=== PATIENT | male | born 1970 | race Caucasian/White ===

== ENCOUNTER 2017-04-24 08:58 | Emergency (ER) | payer MEDICAID ==
[~2017-04-24] VITALS: Ht 172.7 cm; Wt 79.8 kg
[2017-04-24] MEDS ORDERED: TRAZODONE HCL150 MG ORAL (09:09)
[2017-04-24] MEDS ORDERED: ABILIFY20 MG ORAL (09:09)
[2017-04-24] MEDS ORDERED: WELLBUTRIN SR100 MG ORAL (09:09)
[2017-04-24 09:23] VITALS: BP 118/80
[2017-04-24] MEDS ORDERED: CLOTRIMAZOLE15 GM TOPIC (09:30)
[2017-04-24] MEDS ORDERED: ZINC OXIDE30 GM TOPIC (09:30)
[2017-04-24 09:34] VITALS: BP 118/80
--- NOTE | 2017-04-24 11:44 | Emergency Room Report ---
History of Present Illness General Chief Complaint: Skin Rash/Abscess Source: Patient Present Illness HPI 47-year-old male presents ED complaining of rash times one week. Patient notes "jock itch" in his inguinal area times one week. Patient also notes a rash to his buttock area for the same period of time. States it is itchy. Denies any pain. Denies any urethral discharge. Denies any recent unprotected sexual intercourse. No other aggravating relieving factors. Denies any other associated symptoms Allergies: Uncoded Allergies: PENICILLIN (Allergy, Unknown, 04/24/17) Patient History Past Medical History: psych hx Past Surgical History: none Pertinent Family History: none Social History: Denies: alcohol use, drug use, smoking Immunizations: UTD Reviewed Nursing Documentation: PMH: Agreed, PSxH: Agreed Nursing Documentation-PMH History Of Psychiatric Problem: Yes - Bipolar, ADHD; Depression Review of Systems All Other Systems: negative except mentioned in HPI Physical Exam Vital Signs Date Time Temp Pulse Resp B/P Pulse Ox O2 Delivery O2 Flow Rate FiO2 04/24/17 09:04 97.7 84 16 118/80 98 Room Air Sp02 EP Interpretation: reviewed, normal General Appearance: no apparent distress, alert, GCS 15, non-toxic Head: normocephalic Eyes: bilateral eye PERRL, bilateral eye normal inspection ENT: normal ENT inspection Neck: normal inspection Respiratory: normal inspection Cardiovascular #1: normal inspection Gastrointestinal: normal inspection Rectal: deferred Genitourinary: no CVA tenderness Musculoskeletal: normal inspection Neurologic: alert, oriented x3, responsive, motor strength/tone normal, sensory intact, speech normal Psychiatric: normal inspection Skin: rash - erythematous satellite type rash to bilateral inguinal area. ezcematous dry rash noted to medial buttock area Lymphatic: normal inspection Medical Decision Making Diagnostic Impression: Primary Impression: Candidiasis Additional Impression: Dermatitis ER Course Hospital Course 47-year-old male presents to ED with rash to groin, buttock Differential diagnoses include: Cellulitis, dermatitis, insect bite, abscess Clinical course Patient placed on stretcher. After initial history, physical exam reveals a male in no acute distress. On exam there are multiple macular circular -like lesions noted to the bilateral inguinal area. Consistent with candidiasis. There is an eczematous rash in the buttocks region similar to a diaper rash. Diagnosis - candidiasis, dermatitis stable and discharged to home with prescription for clotrimazole for the inguinal region, zinc oxide for the buttock area. Instructed to followup with PMD. Instructed return to ED if symptoms recur or worsen Last Vital Signs Date Time Temp Pulse Resp B/P Pulse Ox O2 Delivery O2 Flow Rate FiO2 04/24/17 09:34 97.7 16 118/80 98 Room Air 04/24/17 09:04 84 Status: improved Disposition: HOME, SELF-CARE Condition: Stable Scripts Zinc Oxide* (ZINC OXIDE*) 30 Gm Oint...g. 1 APPLIC TOPIC FOUR TIMES A DAY, #30 GM Prov: CHELSEY BYRD M.D. 04/24/17 Clotrimazole* (LOTRIMIN*) 15 Gm Cream..g. 1 APPLIC TOPIC TWICE A DAY, #15 GM Prov: CHELSEY BYRD M.D. 04/24/17 Referrals: [facility],REFERRING (PCP) Patient Instructions: Pruritus CHELSEY BYRD M.D. Apr 24, 2017 11:43
== END 2017-04-24 09:34 | disposition home or self-care (01) ==
LOC: EMR 09:25
DX: B37.89 Other sites of candidiasis (principal); L30.9 Dermatitis, unspecified; F31.9 Bipolar disorder, unspecified; F90.9 Attention-deficit hyperactivity disorder, unspecified type; Z88.0 Allergy status to penicillin
CPT/HCPCS: 99284

== ENCOUNTER 2017-06-16 08:33 | Emergency (ER) | payer MEDICAID ==
[~2017-06-16] VITALS: Ht 172.7 cm; Wt 79.4 kg
[~2017-06-16 08:33] MED LIST: ABILIFY20 MG ORAL; CLOTRIMAZOLE15 GM TOPIC; TRAZODONE HCL150 MG ORAL; WELLBUTRIN SR100 MG ORAL; ZINC OXIDE30 GM TOPIC
[2017-06-16 08:47] VITALS: BP 108/69
[2017-06-16] MEDS ORDERED: NORCO 5-325 TA1 EACH ORAL (08:53)
[2017-06-16] MEDS ORDERED: IBUPROFEN600 MG ORAL (08:53)
[2017-06-16 09:00] VITALS: BP 108/69
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
== END 2017-06-16 09:03 | disposition home or self-care (01) ==
LOC: EMR 08:51
DX: S02.2XXA Fracture of nasal bones, initial encounter for closed fracture (principal); W50.1XXA Accidental kick by another person, initial encounter; Y93.9 Activity, unspecified; Y99.9 Unspecified external cause status; J34.89 Other specified disorders of nose and nasal sinuses; Z86.79 Personal history of other diseases of the circulatory system
CPT/HCPCS: 99283

== ENCOUNTER 2017-07-06 19:17 | Emergency (ER) | payer MEDICAID ==
[~2017-07-06] VITALS: Ht 172.7 cm; Wt 78.9 kg
[~2017-07-06 19:17] MED LIST changes: +IBUPROFEN600 MG ORAL; +NORCO 5-325 TA1 EACH ORAL
[2017-07-06] MEDS ORDERED: HYDROCORTISONE30 G2 TP (19:57)
[2017-07-06] MEDS ORDERED: BENADRYL ALLERG25 M1 PO (19:57)
[2017-07-06] MEDS ORDERED: BACITRACIN-P28.35 GM TP (19:57)
[2017-07-06 20:00] VITALS: BP 129/82
--- NOTE | 2017-07-06 20:00 | Emergency Room Report ---
History of Present Illness General Chief Complaint: Skin Rash/Abscess Present Illness HPI 47-year-old male presents to the emergency department complaining of itchy rash to the left forearm times two hours Patient states he was doing some housecleaning in a friend's house when he began feeling itchy and scratching to his left forearm. Patient denies increased temperature palpation denies fevers denies chills. Denies lesions/rashes elsewhere on the body. Denies new medications or body washes or creams. Denies swelling of the lips, tongue , throat or airway. Denies wheezing, or shortness of breath. Denies recent travel , recent illness or ill contacts. denies blisters, oral lesions, or sloughing of the skin. Denies CP, Palpitations, LOC, AMS, dizziness, Changes in Vision, Sensation, paresthesias, or a sudden severe headache. Allergies: Uncoded Allergies: PENICILLIN (Allergy, Intermediate, Rash, 06/16/17) Patient History Past Medical History: see triage record Past Surgical History: none Pertinent Family History: none Immunizations: UTD Reviewed Nursing Documentation: PMH: Agreed, PSxH: Agreed Nursing Documentation-PMH Hx Cardiac Problems: No - hiv hep c bi-polar depression schizophrenia Review of Systems All Other Systems: negative except mentioned in HPI Physical Exam Vital Signs Date Time Temp Pulse Resp B/P (MAP) Pulse Ox O2 Delivery O2 Flow Rate FiO2 07/06/17 19:51 98.1 115 16 129/82 97 Room Air Sp02 EP Interpretation: reviewed, normal General Appearance: no apparent distress, alert, GCS 15, non-toxic Head: normocephalic, atraumatic Eyes: bilateral eye normal inspection, bilateral eye PERRL ENT: hearing grossly normal, normal pharynx, no angioedema, normal voice, other - no swelling of the lips or tongue Neck: full range of motion, supple/symm/no masses Respiratory: lungs clear, normal breath sounds, no respiratory distress, no wheezing, speaking full sentences Cardiovascular #1: regular rate, rhythm, normal capillary refill Musculoskeletal: back normal, gait/station normal, normal range of motion, non- tender Neurologic: alert, oriented x3, responsive, motor strength/tone normal, sensory intact, speech normal Skin: normal color, warm/dry, well hydrated, rash - area of induration and blanching erythema with excoriations to the left wrist, no increased temperature to palpation, no blisters, no vessicles , dc, or crusting. Lymphatic: no adenopathy Medical Decision Making PA Attestation Dr. garcia is my supervising Physician whom patient management has been discussed with. Diagnostic Impression: Primary Impression: Insect bite Qualified Codes: W57.XXXA - Bitten or stung by nonvenomous insect and other nonvenomous arthropods, initial encounter Additional Impression: Rash and nonspecific skin eruption ER Course 47-year-old male presents to the emergency department complaining of itchy rash to the left forearm times two hours Patient states he was doing some housecleaning in a friend's house when he began feeling itchy and scratching to his left forearm. Patient denies increased temperature palpation denies fevers denies chills. Denies lesions/rashes elsewhere on the body. Denies new medications or body washes or creams. Denies swelling of the lips, tongue , throat or airway. Denies wheezing, or shortness of breath. Denies recent travel , recent illness or ill contacts. denies blisters, oral lesions, or sloughing of the skin. Denies CP, Palpitations, LOC, AMS, dizziness, Changes in Vision, Sensation, paresthesias, or a sudden severe headache. Ddx considered but are not limited to cellulitis, scabies, shingles, varicella, dermatitis, urticaria, eczema, tinea, viral exanthem, SJS Vital signs: are WNL, pt. is afebrile H&PE are most consistent with insect bites with localized reaction. ORDERS: none required at this time, the diagnosis is clinical ED INTERVENTIONS: None required at this time. DISCHARGE: At this time pt. is stable for d/c to home. Will provide printed patient care instructions, and any necessary prescriptions. Care plan and follow up instructions have been discussed with the patient prior to discharge. Last Vital Signs Date Time Temp Pulse Resp B/P (MAP) Pulse Ox O2 Delivery O2 Flow Rate FiO2 07/06/17 19:51 98.1 115 16 129/82 97 Room Air Disposition: HOME, SELF-CARE Condition: Stable Scripts Bacitracin/Polymyxin B Sulfate (BACITRACIN-POLYMYXIN OINTMENT) 28.35 Gm Oint...g. 1 APPLIC TP BID, #28.3 GM Prov: Darby Humphrey 07/06/17 Hydrocortisone (Hydrocortisone Cream 2.5%) Y Cream.appl 1 APPLIC TP BID, #28.3 GM Prov: Darby Humphrey 07/06/17 Diphenhydramine Hcl (BENADRYL ALLERGY) 25 Mg Tablet 25 MG PO Q6HR, #20 TAB Prov: Darby Humphrey 07/06/17 Patient Instructions: Insect Bite, Rxqy-uz-Lxrq, Rash, Xibu-ni-Pqop Additional Instructions: Take medications as directed. Follow up with a Primary Care Provider in 3-5 days, even if your symptoms have resolved. --Please review list of primary care clinics, if you do not already have a primary care provider Return sooner to ED if new symptoms occur, or current symptoms become worse. Do not drink alcohol, drive, or operate heavy machinery while taking Benadryl as this may cause drowsiness. - Please note that this Emergency Department Report was dictated using [employer] port director technology software, occasionally this can lead to erroneous entry secondary to interpretation by the dictation equipment. Darby Humphrey Jul 06, 2017 20:00
== END 2017-07-06 20:00 | disposition home or self-care (01) ==
LOC: EMR 19:57
DX: R21 Rash and other nonspecific skin eruption (principal); W57.XXXA Bitten or stung by nonvenomous insect and other nonvenomous arthropods, initial encounter; Y93.E9 Activity, other interior property and clothing maintenance; Y99.9 Unspecified external cause status; Z88.0 Allergy status to penicillin
CPT/HCPCS: 99284

== ENCOUNTER 2017-07-09 11:29 | Emergency (ER) | payer MEDICAID ==
[~2017-07-09] VITALS: Ht 172.7 cm; Wt 79.4 kg
[~2017-07-09 11:29] MED LIST changes: +BACITRACIN-P28.35 GM TP; +BENADRYL ALLERG25 M1 PO; +HYDROCORTISONE30 G2 TP
[2017-07-09 11:40] VITALS: BP 133/76
[2017-07-09] MEDS ORDERED: Ketorolac 60mg Inj IM ONE (12:15)
[2017-07-09 12:30] VITALS: BP 133/76
--- NOTE | 2017-07-09 15:28 | Emergency Room Report ---
History of Present Illness General Chief Complaint: Pain Source: Patient Present Illness HPI This is a 47-year-old male presented after increased left-sided headache. Patient had gradual onset of symptoms. Patient reported having headache for approximately one week. He denies any recent trauma. He reported having increased pain to the left side of his head behind his ear. He denied any fever or or hearing changes. The patient presented prior history of HIV. He states that he has been taking medications. Also takes medications for psychiatric problems. The patient denied any vomiting or visual changes. Allergies: Uncoded Allergies: PENICILLIN (Allergy, Intermediate, Rash, 06/16/17) Patient History Past Medical History: see triage record Reviewed Nursing Documentation: PMH: Agreed, PSxH: Agreed Nursing Documentation-PMH Hx Cardiac Problems: No - hiv, hep c History Of Psychiatric Problem: Yes - ADHD, DEPRESSION, AUDITORY VOICES, BIPOLAR, SCHIZOPHRENIA Review of Systems All Other Systems: negative except mentioned in HPI Physical Exam Vital Signs Date Time Temp Pulse Resp B/P (MAP) Pulse Ox O2 Delivery O2 Flow Rate FiO2 07/09/17 11:40 98.1 97 19 133/76 99 Room Air General Appearance: well appearing, no apparent distress, alert, non-toxic Head: normocephalic, atraumatic, other - tenderness to left ear ENT: hearing grossly normal, normal voice Neck: full range of motion, supple Respiratory: no respiratory distress, speaking full sentences Musculoskeletal: no calf tenderness Neurologic: normal gait Psychiatric: mood/affect normal Skin: no rash Medical Decision Making Diagnostic Impression: Primary Impression: Headache ER Course Presented for headache. Differential diagnoses included but was not limited to skull fracture, subarachnoid hemorrhage, meningitis, aneurysm, mass lesion, intracranial hemorrhage. I given the patient's history of HIV, CT imaging of the head was ordered. the patient eloped prior to getting head CT without notifying staff. The patient did not appear to have any alteration of his mental status. Last Vital Signs Date Time Temp Pulse Resp B/P (MAP) Pulse Ox O2 Delivery O2 Flow Rate FiO2 07/09/17 12:30 98.1 97 19 133/76 99 Room Air Status: unchanged Disposition: ELOPED Condition: Unknown Referrals: [facility],REFERRING (PCP) Chad Etienne Jul 09, 2017 15:28
== END 2017-07-09 14:21 | disposition home or self-care (01) ==
LOC: EMR 11:54
DX: R51 Headache (principal); Z88.0 Allergy status to penicillin
CPT/HCPCS: 99281

== ENCOUNTER 2018-04-16 20:38 | Emergency (ER) | payer MEDICAID ==
[~2018-04-16] VITALS: Ht 172.7 cm; Wt 77.1 kg
[2018-04-16 21:13] VITALS: BP 113/68
[2018-04-16 21:23] LABS: APPEARANCE,URINE CLEAR; BASOPHILS % (AUTO) 0.7 % (0.0-2.0); BILIRUBIN, URINE NEGATIVE (NEGATIVE); EOSINOPHILS % (AUTO) 1.4 % (0.0-3.0); GLUCOSE, URINE (UA) NEGATIVE (NEGATIVE); HEMATOCRIT 37.2 % (42.0-52.0); HEMOGLOBIN 12.9 G/DL (14.2-18.0); KETONES,URINE 1+ (NEGATIVE); LEUKOCYTE ESTERASE ,URINE 1+ (NEGATIVE); LYMPHOCYTES % (AUTO) 22.8 % (20.0-45.0); MEAN CORPUSCULAR VOLUME 97 FL (80-99); MONOCYTES % (AUTO) 9.7 % (1.0-10.0); NEUTROPHILS % (AUTO) 65.5 % (45.0-75.0); NITRITE,URINE NEGATIVE (NEGATIVE); PH,URINE 6 (4.5-8.0); PLATELET COUNT 179 K/UL (150-450); PROTEIN,URINE 2+ (NEGATIVE); RED BLOOD COUNT 3.83 M/UL (4.70-6.10); RED CELL DISTRIBUTION WIDTH 12.2 % (11.6-14.8); UROBILINOGEN,URINE 1 MG/DL (0.0-1.0); WHITE BLOOD COUNT 11.8 K/UL (4.8-10.8)
[2018-04-16 21:24] LABS: COLOR,URINE YELLOW
[2018-04-16] MEDS ORDERED: Morphine Sulfate 4mg/ml Inj IVP ONE (21:30)
[2018-04-16 21:33] LABS: ANION GAP 8 mmol/L (5-15); BLOOD UREA NITROGEN 16 mg/dL (7-18); CALCIUM 8.9 MG/DL (8.5-10.1); CARBON DIOXIDE 28 MMOL/L (21-32); CHLORIDE 105 MMOL/L (98-107); POTASSIUM 3.5 MMOL/L (3.5-5.1); SODIUM 140 MMOL/L (136-145)
[2018-04-16 21:37] LABS: ALANINE AMINOTRANSFERASE 101 U/L (12-78); ALBUMIN 3.3 G/DL (3.4-5.0); ALBUMIN/GLOBULIN RATIO 0.8 (1.0-2.7); ALKALINE PHOSPHATASE 159 U/L (46-116); ASPARTATE AMINO TRANSFERASE 60 U/L (15-37); BILIRUBIN,TOTAL 0.2 MG/DL (0.2-1.0)
--- NOTE | 2018-04-16 21:57 | Emergency Room Report ---
History of Present Illness General Chief Complaint: Abdominal Pain Source: Patient Present Illness [facility] ED complaining of abdominal pain 1 day. Pain is epigastric, burning, 8 out of 10, nonradiating. Denies nausea or vomiting. Denies fevers or chills. Denies chest pain or shortness of breath. No other aggravating relieving factors. Denies any other associated symptoms Allergies: Coded Allergies: PENICILLINS (Unverified Allergy, Unknown, Rash, 04/16/18) Uncoded Allergies: PENICILLIN (Allergy, Intermediate, Rash, 06/16/17) Patient History Past Medical History: psych hx Past Surgical History: none Pertinent Family History: none Social History: Denies: smoking, alcohol use, drug use Immunizations: UTD Reviewed Nursing Documentation: PMH: Agreed; PSxH: Agreed Nursing Documentation-PMH Past Medical History: No History, Except For Hx Cardiac Problems: No - hiv, hep c History Of Psychiatric Problem: Yes Review of Systems All Other Systems: negative except mentioned in HPI Physical Exam Vital Signs Date Time Temp Pulse Resp B/P (MAP) Pulse Ox O2 Delivery O2 Flow Rate FiO2 04/16/18 20:42 97.9 95 16 113/68 98 Room Air 97.9 Sp02 EP Interpretation: reviewed, normal General Appearance: no apparent distress, alert, GCS 15, non-toxic Head: normocephalic, atraumatic Eyes: bilateral eye normal inspection, bilateral eye PERRL ENT: hearing grossly normal, normal pharynx, no angioedema, normal voice Neck: full range of motion, supple/symm/no masses Respiratory: chest non-tender, lungs clear, normal breath sounds, speaking full sentences Cardiovascular #1: regular rate, rhythm, no edema Cardiovascular #2: 2+ carotid (R), 2+ carotid (L), 2+ radial (R), 2+ radial (L) , 2+ dorsalis pedis (R), 2+ dorsalis pedis (L) Gastrointestinal: normal bowel sounds, soft, non-distended, no guarding, no rebound, tenderness - epigastric Rectal: deferred Genitourinary: normal inspection, no CVA tenderness Musculoskeletal: back normal, gait/station normal, normal range of motion, non- tender Neurologic: alert, oriented x3, responsive, motor strength/tone normal, sensory intact, speech normal Psychiatric: judgement/insight normal, memory normal, mood/affect normal, no suicidal/homicidal ideation Reflexes: 3+ bicep (R), 3+ bicep (L), 3+ tricep (R), 3+ tricep (L), 3+ knee (R) , 3+ knee (L) Skin: normal color, no rash, warm/dry, well hydrated Lymphatic: no adenopathy Medical Decision Making Diagnostic Impression: Primary Impression: Cholelithiasis Qualified Codes: K80.20 - Calculus of gallbladder without cholecystitis without obstruction ER Course Hospital Course 48-year-old M presents to ED with epigastric/RUQ pain Differential diagnosis includes-appendicitis, cholecystitis, small bowel obstruction, gastritis, Clinical course Patient placed on stretcher. After initial history and physical I ordered labs , IV fluids, pain medications and US Labs - no leukocytosis, electrolytes ok, LFTs mildly elevated ABD US - cholelithiasis, no cholecystitis Discussed findings with patient. Patient does not appear toxic. No signs of biliary obstruction. Recommend close follow-up with PMD. I'll provide him with surgical referral I feel this is a highly complex case requiring extensive working including EKG/ Rhythm strip, Xray/CT/US, Blood/urine lab work, repeat exams while in ED, and administration of strong opiates/narcotics for pain control, admission to hospital or close patient follow up. Diagnosis - cholelithiasis Stable and discharged to home with Rx [place], Zantac. Followup with PMD/ surgery. Return to ED if symptoms recur or worsen Labs Test 04/16/18 19:07 White Blood Count 11.8 K/UL (4.8-10.8) Red Blood Count 3.83 M/UL (4.70-6.10) Hemoglobin 12.9 G/DL (14.2-18.0) Hematocrit 37.2 % (42.0-52.0) Mean Corpuscular Volume 97 FL (80-99) Mean Corpuscular Hemoglobin 33.7 PG (27.0-31.0) Mean Corpuscular Hemoglobin Concent 34.6 G/DL (32.0-36.0) Red Cell Distribution Width 12.2 % (11.6-14.8) Platelet Count 179 K/UL (150-450) Mean Platelet Volume 6.0 FL (6.5-10.1) Neutrophils (%) (Auto) 65.5 % (45.0-75.0) Lymphocytes (%) (Auto) 22.8 % (20.0-45.0) Monocytes (%) (Auto) 9.7 % (1.0-10.0) Eosinophils (%) (Auto) 1.4 % (0.0-3.0) Basophils (%) (Auto) 0.7 % (0.0-2.0) Urine Color Yellow Urine Appearance Clear Urine pH 6 (4.5-8.0) Urine Specific [place] 1.025 (1.005-1.035) Urine Protein 2+ (NEGATIVE) Urine Glucose (UA) Negative (NEGATIVE) Urine Ketones 1+ (NEGATIVE) Urine Occult Blood Negative (NEGATIVE) Urine Nitrite Negative (NEGATIVE) Urine Bilirubin Negative (NEGATIVE) Urine Urobilinogen 1 MG/DL (0.0-1.0) Urine Leukocyte Esterase 1+ (NEGATIVE) Urine RBC 0-2 /HPF (0 - 0) Urine WBC 0-2 /HPF (0 - 0) Urine Squamous Epithelial Cells None /LPF (NONE/OCC) Urine Bacteria Few /HPF (NONE) Urine Mucus Moderate /LPF (NONE/OCC) Sodium Level 140 MMOL/L (136-145) Potassium Level 3.5 MMOL/L (3.5-5.1) Chloride Level 105 MMOL/L (98-107) Carbon Dioxide Level 28 MMOL/L (21-32) Anion Gap 8 mmol/L (5-15) Blood Urea Nitrogen 16 mg/dL (7-18) Creatinine 1.0 MG/DL (0.55-1.30) Estimat Glomerular Filtration Rate > 60 mL/min (>60) Glucose Level 110 MG/DL (74-106) Calcium Level 8.9 MG/DL (8.5-10.1) Total Bilirubin 0.2 MG/DL (0.2-1.0) Aspartate Amino Transf (AST/SGOT) 60 U/L (15-37) Alanine Aminotransferase (ALT/SGPT) 101 U/L (12-78) Alkaline Phosphatase 159 U/L (46-116) Total Protein 7.2 G/DL (6.4-8.2) Albumin 3.3 G/DL (3.4-5.0) Globulin 3.9 g/dL Albumin/Globulin Ratio 0.8 (1.0-2.7) Lipase 234 U/L (73-393) CT/MRI/US Diagnostic Results CT/MRI/US Diagnostic Results : Imaging Test Ordered: US Impression choleltihasis. no cholecystitis. no pericholecystic fluid. no GB wall thickening Last Vital Signs Date Time Temp Pulse Resp B/P (MAP) Pulse Ox O2 Delivery O2 Flow Rate FiO2 04/16/18 21:29 97.9 04/16/18 21:13 16 113/68 98 Room Air 04/16/18 20:42 95 Status: improved Disposition: HOME, SELF-CARE Condition: Stable Scripts Ranitidine Hcl* (ZANTAC*) 150 Mg Tablet 150 MG ORAL TWICE A DAY, #30 TAB Prov: Jesús Aguilar MD 04/16/18 Hydrocodone Bit/Acetaminophen 5-325* (NORCO 5-325*) 1 Each Tablet 1 TAB ORAL Q6H PRN for For Pain, #10 TAB 0 Refills Prov: Jesús Aguilar MD 04/16/18 Referrals: [facility],REFERRING (PCP) Jesús Aguilar MD Apr 16, 2018 21:57
[2018-04-16] MEDS ORDERED: RANITIDINE HCL150 MG ORAL (22:36)
[2018-04-16] MEDS ORDERED: NORCO 5-325 TA1 EACH ORAL (22:36)
[2018-04-16 22:56] VITALS: BP 113/68
--- NOTE | 2018-04-17 14:08 | Diagnostic Imaging Report ---
Indication:Abdominal pain. Hepatitis C Technique: Grayscale and duplex Doppler imaging of the abdomen performed. Comparison: None Findings: The liver, demonstrated part of the pancreas, gallbladder, aorta and IVC, both kidneys, appear unremarkable. Borderline splenomegaly measuring 13 cm. There is no biliary ductal dilatation identified. Doppler evaluation of the main portal vein shows patency. There is no ascites. No hydronephrosis seen. CBD is 6 mm. Impression: No acute findings. Borderline splenomegaly
== END 2018-04-16 22:57 | disposition home or self-care (01) ==
LOC: EMR 20:52
DX: K80.20 Calculus of gallbladder without cholecystitis without obstruction (principal); Z88.0 Allergy status to penicillin
CPT/HCPCS: 36415; 76700; 80053; 81003; 83690; 85025; 96361; 96374; 99284; J2270; 96360

== ENCOUNTER 2018-06-27 19:26 | Emergency (ER) | payer MEDICAID ==
[~2018-06-27] VITALS: Ht 172.7 cm; Wt 72.6 kg
[~2018-06-27 19:26] MED LIST changes: +RANITIDINE HCL150 MG ORAL
[2018-06-27] MEDS ORDERED: ACYCLOVIR800 MG ORAL (20:14)
[2018-06-27] MEDS ORDERED: LEVAQUIN750 MG ORAL (20:14)
[2018-06-27] MEDS ORDERED: VALACYCLOVIR500 MG ORAL (20:14)
[2018-06-27] MEDS ORDERED: GABAPENTIN100 MG ORAL (20:14)
[2018-06-27] MEDS ORDERED: NAPROXEN500 M2 ORAL (20:14)
[2018-06-27] MEDS ORDERED: AZITHROMYCIN500 MG ORAL (20:14)
[2018-06-27 20:30] VITALS: BP 125/77
[2018-06-27] MEDS ORDERED: Morphine Sulfate 4mg/ml Inj (IV USE ONLY) IVP ONE (20:30)
[2018-06-27] MEDS ORDERED: Acyclovir 500 MG in D5W 110 ML IV ONE (20:30)
[2018-06-27 20:35] VITALS: BP 125/77
--- NOTE | 2018-06-27 22:01 | Emergency Room Report ---
History of Present Illness General Chief Complaint: General Complaint Source: Patient Present Illness HPI This patient has a history of HIV. He states that his viral load is very high and his CD4 count is low. He was seen by his infectious disease doctor and it was recommended that he be admitted to the hospital yesterday. He developed shingles 3 days ago and the shingles have worsened significantly. He has a lot of pain in the distribution of this shingles. He does have multiple medications to include acyclovir that was given to him by his infectious disease doctor to treat this shingles. However he states that the pain is worsening. He denies fever or chills. He denies nausea or vomiting. He denies chest pain or shortness of breath. Denies abdominal pain. He has no other complaints. Allergies: Coded Allergies: PENICILLINS (Unverified Allergy, Unknown, Rash, 04/16/18) Uncoded Allergies: PENICILLIN (Allergy, Intermediate, Rash, 06/16/17) Patient History Past Medical History: HIV, other - HCV Reviewed Nursing Documentation: PMH: Agreed; PSxH: Agreed Nursing Documentation-PMH Hx Cardiac Problems: No - hiv, hep c Review of Systems All Other Systems: negative except mentioned in HPI Physical Exam Vital Signs Date Time Temp Pulse Resp B/P (MAP) Pulse Ox O2 Delivery O2 Flow Rate FiO2 06/27/18 19:37 97.7 93 20 125/77 92 Room Air 97.7 Sp02 EP Interpretation: reviewed, normal General Appearance: no apparent distress, alert, GCS 15, non-toxic Head: normocephalic, atraumatic Eyes: bilateral eye normal inspection, bilateral eye PERRL ENT: hearing grossly normal, normal pharynx, no angioedema, normal voice Neck: full range of motion, supple/symm/no masses Respiratory: lungs clear, normal breath sounds, no respiratory distress, no retraction, no accessory muscle use, speaking full sentences Cardiovascular #1: regular rate, rhythm, no edema Gastrointestinal: normal inspection, non-distended Rectal: deferred Musculoskeletal: back normal, gait/station normal, normal range of motion, non- tender Neurologic: alert, oriented x3, responsive, motor strength/tone normal, sensory intact, speech normal Psychiatric: judgement/insight normal, memory normal, mood/affect normal, no suicidal/homicidal ideation Skin: warm/dry, well hydrated, other - Erythematous and vesicular lesions in dermatomal distribution R. chest wall. Lymphatic: no adenopathy Medical Decision Making Diagnostic Impression: Primary Impression: Shingles Additional Impressions: HIV (human immunodeficiency virus infection) Immunocompromised ER Course This patient has shingles. It does appear to be localized and in one dermatome. However, the patient is immunocompromised with active HIV and a low CD4 count. I am concerned about development of disseminated zoster. I felt that this patient should be admitted and undergo IV antiviral treatment. The patient had agreed to be admitted for IV antivirals, however, he eloped from the emergency department without explanation. Last Vital Signs Date Time Temp Pulse Resp B/P (MAP) Pulse Ox O2 Delivery O2 Flow Rate FiO2 06/27/18 19:37 97.7 93 20 125/77 92 Room Air 97.7 Disposition: ELOPED Condition: Serious Referrals: DAVID CAREY,REFERRING (PCP) Beverley Oconnor DO Jun 27, 2018 22:01
== END 2018-06-27 20:35 | disposition left against medical advice (07) ==
LOC: EMR 20:00
DX: B02.8 Zoster with other complications (principal)
CPT/HCPCS: 96361; 96374; 99284

== ENCOUNTER 2018-07-15 13:42 | Emergency (ER) | payer MEDICAID ==
[~2018-07-15] VITALS: Ht 172.7 cm; Wt 77.1 kg
[~2018-07-15 13:42] MED LIST changes: +ACYCLOVIR800 MG ORAL; +AZITHROMYCIN500 MG ORAL; +GABAPENTIN100 MG ORAL; +LEVAQUIN750 MG ORAL; +NAPROXEN500 M2 ORAL; +VALACYCLOVIR500 MG ORAL
[2018-07-15 14:00] VITALS: BP 130/83
--- NOTE | 2018-07-15 14:02 | Emergency Room Report ---
History of Present Illness General Chief Complaint: Skin Rash/Abscess Source: Patient Present Illness HPI 48-year-old male patient presents ER complaining of ear shingles rash pain and ear infection past few days. Reports history of HIV, states has low thyroid load and CD4 count. States that he was presents for shingles on his abdomen and back. Weeks ago. States that he eloped at that time because he was scared. Reports that he went to [facility] where he was admitted and given antivirals for 2 days then discharged. States that he was given refill of his HIV meds and rx for Berkshire and gabapentin discharge, states rash healing since that time. States that he ran out of the Berkshire's and is looking for refill of the Berkshire medication, has been seen by other providers for refills of Berkshire, states still taking gabapentin medication. States that his current doctor is out of town for the past 2 weeks, states that he went to the doctor's office this morning and told that he cannot be seen to doctors out of town. Also complaining of left ear pain and swelling for the past few days. States he thinks he was bit by a bug, denies itching or burning pain. Denies vesicles or blisters on ear. Denies ear discharge or loss of hearing. Denies vision changes. Denies fever, chest pain, shortness of breath, abdominal pain, vomiting. Allergies: Coded Allergies: PENICILLINS (Unverified Allergy, Unknown, Rash, 04/16/18) Uncoded Allergies: PENICILLIN (Allergy, Intermediate, Rash, 06/16/17) Patient History Past Medical History: see triage record Reviewed Nursing Documentation: PMH: Agreed; PSxH: Agreed Nursing Documentation-PMH Past Medical History: No History, Except For Hx Cardiac Problems: No - hiv+, hep c History Of Psychiatric Problem: Yes - depression Review of Systems All Other Systems: negative except mentioned in HPI Physical Exam Vital Signs Date Time Temp Pulse Resp B/P (MAP) Pulse Ox O2 Delivery O2 Flow Rate FiO2 07/15/18 13:48 97.5 84 16 130/83 96 Room Air 97.5 General Appearance: normal inspection, well appearing, no apparent distress, alert, GCS 15, non-toxic Head: normocephalic, atraumatic Eyes: bilateral eye normal inspection, bilateral eye PERRL ENT: hearing grossly normal, normal pharynx, no angioedema, normal voice, TMs + canals normal, uvula midline, moist mucus membranes, other - no vesiscular rash on face Neck: full range of motion Respiratory: lungs clear, normal breath sounds, no rhonchi, no respiratory distress, no accessory muscle use, no wheezing, speaking full sentences Cardiovascular #1: regular rate, rhythm, no edema Genitourinary: no CVA tenderness Musculoskeletal: back normal, digits/nails normal, gait/station normal, normal range of motion, non-tender Neurologic: alert, oriented x3, responsive, motor strength/tone normal, sensory intact Psychiatric: mood/affect normal Skin: rash - shingles rash on single dermatome of right flank and back extending towards abdomen, apepars healing, no vesicles, no active drainage, crusting noted, other - left ear auricle: erythematous, TTP, mild warmth to touch, pain with pulling, no flucturance or induration, no drainage, no palpable mass, no vesicles, no blisters, no crusting Medical Decision Making PA Attestation Dr. Flores is my supervising Physician whom patient management has been discussed with. Diagnostic Impression: Primary Impression: Shingles rash Additional Impression: Cellulitis ER Course Pt. presents to the ED c/o outer ear infection and shingles. Ddx considered but are not limited to rash, cellulitis, abscess, atopic dermatitis, angioedema., allergic reaction, DVT. Vital signs: are WNL, pt. is afebrile ER COURSE: patient presents with obvious healing shingles rash, has aren't been treated with antivirals, likely neuralgia from healing shingles rash. Will provide patient with topical Capsacin medication for relief of symptoms. Will provide patient with single Berkshire in the ER for pain relief, instructed follow-up with PCP from pain management pain symptoms persist. Will not provide patient with refill Berkshire medication. CURES was reviewed shows multiple prescription refills over the past 3 weeks for Berkshire pain medication. patient afebrile, patient already completed full course of antivirals, does not require further treatment with antiviral medication at this time. Advised on use of Tylenol/Motrin for pain symptoms relief. Patient also has possible cellulitis of his left outer ear, will provide patient with antibiotic treatment, no fluctuance or induration or palpable mass , does not require incision and drainage. No vesicles or blisters noted on ear or near eye, low suspicion for Jalen Glasgow. Consult with [facility] G[facility]a for outpatient abx treatment. complete full course of antibiotics. Patient afebrile, resting comfortably, in no acute distress, nontoxic appearing. DISCHARGE: -Rx provided for Capsacin cream -Rx provided for Bactrim At this time pt. is stable for d/c to home. Patient resting comfortably in no acute distress, nontoxic appearing. Will provide printed patient care instructions, and any necessary prescriptions. Patient instructed to complete current course of antibiotics. Care plan and follow up instructions have been discussed with the patient prior to discharge. Patient instructed to follow-up with primary care provider in 3 - 5 days and discuss further referral to foot press operator and vascular physician. Patient questions asked and answered. ER precautions given. Patient instructed to return to ER immediately for any new or worsening of symptoms including but not limited to increasing SOB, persistent fever, intractable vomiting, calf pain. - Please note that this Emergency Department Report was dictated using [employer] technology software, occasionally this can lead to erroneous entry secondary to interpretation by the dictation equipment. Last Vital Signs Date Time Temp Pulse Resp B/P (MAP) Pulse Ox O2 Delivery O2 Flow Rate FiO2 07/15/18 13:48 97.5 84 16 130/83 96 Room Air 97.5 Disposition: HOME, SELF-CARE Condition: Stable Scripts Capsaicin (CAPZASIN-HP) 42.5 Gm Cream..g. 42.5 GM TP BID, #42 GM Prov: Destin Rodriguez 07/15/18 Trimethoprim/Sulfamethoxazole 160/800* (BACTRIM DS TABLET*) 1 Each Tablet 1 TAB ORAL TWICE A DAY for 7 Days, #14 TAB Prov: Destin Rodriguez 07/15/18 Patient Instructions: Cellulitis, [id number], Shingles, [id number] Additional Instructions: Followup with primary care provider for pain medication, discuss referral to bumper and painter. Take HIV medications as instructed. Take medications as directed. Do not scratch or itch. Followup in 2-3 days for wound check of cellulitis of ear. Patient questions asked and answered. ER precautions given, patient instructed to return to ER immediately for any new or worsening of symptoms. Destin Rodriguez Jul 15, 2018 14:02
[2018-07-15] MEDS ORDERED: CAPZASIN-HP42.5 GM TP (14:04)
[2018-07-15] MEDS ORDERED: BACTRIM DS TAB1 EAC1 ORAL (14:04)
[2018-07-15] MEDS ORDERED: Norco 5mg/325mg tab ORAL ONE (14:15)
[2018-07-15 14:16] VITALS: BP 130/83
== END 2018-07-15 14:16 | disposition home or self-care (01) ==
LOC: EMR 14:07
DX: B02.9 Zoster without complications (principal); H60.12 Cellulitis of left external ear
CPT/HCPCS: 99283

== ENCOUNTER 2018-08-07 06:16 | Emergency (ER) | payer MEDICAID ==
[~2018-08-07] VITALS: Ht 172.7 cm; Wt 72.6 kg
[~2018-08-07 06:16] MED LIST changes: +BACTRIM DS TAB1 EAC1 ORAL; +CAPZASIN-HP42.5 GM TP
[2018-08-07 06:32] VITALS: BP 132/78
--- NOTE | 2018-08-07 06:44 | Emergency Room Report ---
History of Present Illness General Chief Complaint: Skin Rash/Abscess Source: Patient Present Illness HPI This patient has a history of HIV and had been poorly controlled. He is back on his HIV medications. He recently had an episode of shingles that since resolved. He presents today because over the past week he has noticed very itchy lesions on his body. He states he did have a pest inspection of his apartment and there were no bedbugs. He states that the lesions are very itchy. They're on his arms and legs. He denies fever or chills. He denies nausea or vomiting. He has no headache or neck pain. He has no other complaints. Allergies: Coded Allergies: PENICILLINS (Unverified Allergy, Unknown, Rash, 04/16/18) Uncoded Allergies: PENICILLIN (Allergy, Intermediate, Rash, 06/16/17) Patient History Past Medical History: see triage record, HIV, other - HCV Social History: Denies: smoking, alcohol use, drug use Reviewed Nursing Documentation: PMH: Agreed; PSxH: Agreed Nursing Documentation-PMH Hx Cardiac Problems: No - hiv+, hep c History Of Psychiatric Problem: Yes Review of Systems All Other Systems: negative except mentioned in HPI Physical Exam Vital Signs Date Time Temp Pulse Resp B/P (MAP) Pulse Ox O2 Delivery O2 Flow Rate FiO2 08/07/18 06:31 97.9 102 18 132/78 95 97.9 Sp02 EP Interpretation: reviewed, normal General Appearance: no apparent distress, alert, GCS 15, non-toxic Head: normocephalic, atraumatic Eyes: bilateral eye normal inspection, bilateral eye PERRL ENT: hearing grossly normal, normal pharynx, no angioedema, normal voice Neck: full range of motion, supple/symm/no masses Respiratory: no respiratory distress, no retraction, no accessory muscle use, speaking full sentences Rectal: deferred Musculoskeletal: back normal, gait/station normal, normal range of motion, non- tender Neurologic: alert, oriented x3, responsive, motor strength/tone normal, sensory intact, speech normal Psychiatric: judgement/insight normal, memory normal, mood/affect normal, no suicidal/homicidal ideation Skin: warm/dry, well hydrated, other - Scattered maculopapular lesions on arms and legs with skin findings c/w excoriations. Lymphatic: no adenopathy Medical Decision Making Diagnostic Impression: Primary Impression: Scabies ER Course I suspect this patient has scabies. This is based on the scattered nature of the lesions on the arms and legs and the pruritus associated with them. The patient does have a history of immunocompromised by this rash does not look like any type of systemic bacterial infection. Overall, the patient is well- appearing and nontoxic. I will place the patient on permethrin cream and I instructed the patient to follow-up closely with his infectious disease physician. I also instructed the patient on how to decontaminate his apartment and clothing and bedding. The patient is given close return precautions and follow-up instructions. Last Vital Signs Date Time Temp Pulse Resp B/P (MAP) Pulse Ox O2 Delivery O2 Flow Rate FiO2 08/07/18 06:32 97.9 102 18 132/78 95 97.9 Status: improved Disposition: HOME, SELF-CARE Condition: Improved Beverley Oconnor DO Aug 07, 2018 06:44
[2018-08-07] MEDS ORDERED: PERMETHRIN60 GM TOPIC (06:48)
[2018-08-07] MEDS ORDERED: ATARAX25 MG ORAL (06:51)
[2018-08-07 07:01] VITALS: BP 132/78
== END 2018-08-07 07:00 | disposition home or self-care (01) ==
LOC: EMR 06:47
DX: B86 Scabies (principal); Z88.0 Allergy status to penicillin; B19.20 Unspecified viral hepatitis C without hepatic coma
CPT/HCPCS: 99282

== ENCOUNTER 2018-11-05 09:41 | Emergency (ER) | payer MEDICAID ==
[~2018-11-05] VITALS: Ht 172.7 cm; Wt 77.1 kg
[~2018-11-05 09:41] MED LIST changes: +ATARAX25 MG ORAL; +PERMETHRIN60 GM TOPIC
[2018-11-05] MEDS ORDERED: EPZICOM TABLET1 EAC1 ORAL (09:50)
[2018-11-05] MEDS ORDERED: WELLBUTRIN SR200 MG ORAL (09:58)
[2018-11-05] MEDS ORDERED: SEROQUEL50 MG ORAL (09:58)
[2018-11-05] MEDS ORDERED: BUSPAR10 MG ORAL (09:58)
--- NOTE | 2018-11-05 10:05 | NUR ---
ED Nurse Note: Pt came in from home due to R sided abdominal pain started around 1900 last night after eating. No complaint of n/v/d. Pt took a "German pill" and rashida relieved but it came back. Pain 07/26. Pt nauseated upon arrival but no active vomitting. AOx4, VSS at this time. Will cont to monitor.
[2018-11-05 10:06] VITALS: BP 118/74
--- NOTE | 2018-11-05 10:09 | NUR ---
ED Nurse Note: Blood and urine collected and sent to lab.
[2018-11-05] MEDS ORDERED: Ketorolac 30mg Inj IV ONE (10:15)
[2018-11-05] MEDS ORDERED: Morphine Sulfate 4mg/ml Inj (IV USE ONLY) IVP ONE (10:15)
--- NOTE | 2018-11-05 10:26 | Emergency Room Report ---
History of Present Illness General Chief Complaint: Abdominal Pain Source: Patient Present Illness HPI Patient has a history of cholecystitis and cholelithiasis. Patient states that he was admitted to hospital giving antibiotics last year. He presents emergency department today complaining of one day of worsening right upper quadrant pain. Pain is nonradiating. He denies any dysuria or urinary frequency. Denies any vomiting but complains of nausea. Symptoms noted to be moderate. Patient states that he has an appointment to see a physician but he has not had a cholecystectomy. Patient admits to drinking some alcohol last night.No other modifying factors. No other associated signs and symptoms. No other complaints were noted. Allergies: Coded Allergies: PENICILLINS (Unverified Allergy, Unknown, Rash, 04/16/18) Uncoded Allergies: PENICILLIN (Allergy, Intermediate, Rash, 06/16/17) Patient History Past Medical History: other - Cholelithiasis Past Surgical History: none Pertinent Family History: none Social History: Reports: alcohol use; Denies: smoking, drug use Reviewed Nursing Documentation: PMH: Agreed; PSxH: Agreed Nursing Documentation-PMH Hx Cardiac Problems: No - hiv+, hep c, GALLSTONES Review of Systems All Other Systems: negative except mentioned in HPI Physical Exam Vital Signs Date Time Temp Pulse Resp B/P (MAP) Pulse Ox O2 Delivery O2 Flow Rate FiO2 11/05/18 09:45 98.2 98 20 131/87 99 Room Air Sp02 EP Interpretation: reviewed, normal General Appearance: normal inspection, well appearing, no apparent distress, alert Head: atraumatic Eyes: bilateral eye normal inspection ENT: normal ENT inspection, hearing grossly normal, normal voice Neck: normal inspection, full range of motion, supple, no bony tend Respiratory: normal inspection, lungs clear, normal breath sounds, no respiratory distress, no retraction, no wheezing Cardiovascular #1: regular rate, rhythm, no edema Gastrointestinal: normal inspection, normal bowel sounds, soft, no guarding, no hernia, other - Right upper Quadrant tenderness Genitourinary: no CVA tenderness Musculoskeletal: normal inspection, back normal, normal range of motion Neurologic: normal inspection, alert, responsive, speech normal Psychiatric: normal inspection, judgement/insight normal, mood/affect normal Skin: normal inspection, normal color, no rash Medical Decision Making Diagnostic Impression: Primary Impression: Biliary colic Additional Impression: Cholelithiasis ER Course Patient presents to the emergency department today complaining of abdominal pain. Differential considerations include acute pancreatitis, cholecystitis, gastritis, hepatitis, appendicitis just to name a few. Given the severity of the patient's presentation I felt this is a highly complex patient. This patient required extensive workup. Patient laboratory workup was negative. Patient was given pain medications a significant improvement symptoms or review medical records show the patient does have a history of cholelithiasis. The patient symptoms are improving negative laboratory workup I feel the symptoms are likely secondary cholelithiasis. Recommend outpatient follow-up and cholecystectomy return if worse.Patient is advised to follow up with primary doctor in 2-3 days and return the emergency room for any worsening symptoms and as needed. Labs Test 11/05/18 10:00 White Blood Count 11.3 K/UL (4.8-10.8) Red Blood Count 3.76 M/UL (4.70-6.10) Hemoglobin 14.1 G/DL (14.2-18.0) Hematocrit 36.3 % (42.0-52.0) Mean Corpuscular Volume 97 FL (80-99) Mean Corpuscular Hemoglobin 37.6 PG (27.0-31.0) Mean Corpuscular Hemoglobin Concent 38.9 G/DL (32.0-36.0) Red Cell Distribution Width 13.3 % (11.6-14.8) Platelet Count 205 K/UL (150-450) Mean Platelet Volume 5.8 FL (6.5-10.1) Neutrophils (%) (Auto) 49.9 % (45.0-75.0) Lymphocytes (%) (Auto) 37.5 % (20.0-45.0) Monocytes (%) (Auto) 9.0 % (1.0-10.0) Eosinophils (%) (Auto) 2.6 % (0.0-3.0) Basophils (%) (Auto) 1.1 % (0.0-2.0) Urine Color Yellow Urine Appearance Slightly cloudy Urine pH 7 (4.5-8.0) Urine Specific [place] 1.015 (1.005-1.035) Urine Protein 1+ (NEGATIVE) Urine Glucose (UA) Negative (NEGATIVE) Urine Ketones Negative (NEGATIVE) Urine Blood Negative (NEGATIVE) Urine Nitrite Negative (NEGATIVE) Urine Bilirubin Negative (NEGATIVE) Urine Urobilinogen Normal MG/DL (0.0-1.0) Urine Leukocyte Esterase Negative (NEGATIVE) Urine RBC 0-2 /HPF (0 - 0) Urine WBC 0-2 /HPF (0 - 0) Urine Squamous Epithelial Cells Occasional /LPF Urine Amorphous Sediment Many /LPF (NONE) Urine Bacteria Occasional /HPF (NONE) Sodium Level 137 MMOL/L (136-145) Potassium Level 4.0 MMOL/L (3.5-5.1) Chloride Level 102 MMOL/L (98-107) Carbon Dioxide Level 29 MMOL/L (21-32) Anion Gap 6 mmol/L (5-15) Blood Urea Nitrogen 16 mg/dL (7-18) Creatinine 0.8 MG/DL (0.55-1.30) Estimat Glomerular Filtration Rate > 60 mL/min (>60) Glucose Level 83 MG/DL (74-106) Calcium Level 9.5 MG/DL (8.5-10.1) Total Bilirubin 0.4 MG/DL (0.2-1.0) Aspartate Amino Transf (AST/SGOT) 37 U/L (15-37) Alanine Aminotransferase (ALT/SGPT) 47 U/L (12-78) Alkaline Phosphatase 120 U/L (46-116) Total Protein 8.4 G/DL (6.4-8.2) Albumin 3.7 G/DL (3.4-5.0) Globulin 4.7 g/dL Albumin/Globulin Ratio 0.8 (1.0-2.7) Lipase 182 U/L (73-393) Last Vital Signs Date Time Temp Pulse Resp B/P (MAP) Pulse Ox O2 Delivery O2 Flow Rate FiO2 11/05/18 10:06 74 20 Room Air 11/05/18 10:06 98.2 118/74 99 Status: improved Disposition: HOME, SELF-CARE Condition: Stable Scripts Ondansetron (Zofran) 4 Mg Tablet 4 MG ORAL Q6H PRN for Nausea & Vomiting, #20 TAB 0 Refills Prov: Abdullahi Reyes MD 11/05/18 Ibuprofen* (MOTRIN*) 600 Mg Tablet 600 MG ORAL Q8H PRN for For Pain, #30 TAB 0 Refills Prov: Abdullahi Reyes MD 11/05/18 Hydrocodone Bit/Acetaminophen 5-325* (NORCO 5-325*) 1 Each Tablet 1 TAB ORAL Q6H PRN for For Pain, #10 TAB 0 Refills Prov: Abdullahi Reyes MD 11/05/18 Referrals: NON PHYSICIAN (PCP) Abdullahi Ryees MD Nov 05, 2018 10:26
[2018-11-05 10:43] LABS: BASOPHILS % (AUTO) 1.1 % (0.0-2.0); EOSINOPHILS % (AUTO) 2.6 % (0.0-3.0); HEMATOCRIT 36.3 % (42.0-52.0); HEMOGLOBIN 14.1 G/DL (14.2-18.0); LYMPHOCYTES % (AUTO) 37.5 % (20.0-45.0); MEAN CORPUSCULAR VOLUME 97 FL (80-99); NEUTROPHILS % (AUTO) 49.9 % (45.0-75.0); PLATELET COUNT 205 K/UL (150-450); RED BLOOD COUNT 3.76 M/UL (4.70-6.10); RED CELL DISTRIBUTION WIDTH 13.3 % (11.6-14.8); WHITE BLOOD COUNT 11.3 K/UL (4.8-10.8)
[2018-11-05 10:54] LABS: APPEARANCE,URINE SLIGHTLY CLOUDY; BILIRUBIN, URINE NEGATIVE (NEGATIVE); GLUCOSE, URINE (UA) NEGATIVE (NEGATIVE); KETONES,URINE NEGATIVE (NEGATIVE); LEUKOCYTE ESTERASE ,URINE NEGATIVE (NEGATIVE); NITRITE,URINE NEGATIVE (NEGATIVE); PH,URINE 7 (4.5-8.0); PROTEIN,URINE 1+ (NEGATIVE); UROBILINOGEN,URINE NORMAL MG/DL (0.0-1.0)
[2018-11-05 10:58] LABS: COLOR,URINE YELLOW
[2018-11-05 11:10] LABS: ANION GAP 6 mmol/L (5-15); BLOOD UREA NITROGEN 16 mg/dL (7-18); CALCIUM 9.5 MG/DL (8.5-10.1); CARBON DIOXIDE 29 MMOL/L (21-32); CHLORIDE 102 MMOL/L (98-107); CREATININE 0.8 MG/DL (0.55-1.30); SODIUM 137 MMOL/L (136-145)
[2018-11-05 11:13] LABS: ALANINE AMINOTRANSFERASE 47 U/L (12-78); ALBUMIN 3.7 G/DL (3.4-5.0); ALBUMIN/GLOBULIN RATIO 0.8 (1.0-2.7); ALKALINE PHOSPHATASE 120 U/L (46-116); ASPARTATE AMINO TRANSFERASE 37 U/L (15-37); BILIRUBIN,TOTAL 0.4 MG/DL (0.2-1.0)
[2018-11-05] MEDS ORDERED: IBUPROFEN600 MG ORAL (11:41)
[2018-11-05] MEDS ORDERED: ZOFRAN4 MG ORAL (11:41)
[2018-11-05] MEDS ORDERED: NORCO 5-325 TA1 EACH ORAL (11:41)
[2018-11-05 11:55] VITALS: BP 113/68
--- NOTE | 2018-11-05 11:55 | NUR ---
ED Nurse Note: Pt is clear to be discharged by ERMD. Discharge paper and prescription given, pt verbalized understanding of discharge instruction. AOx4, VSS Wristband and IV line removed. Pt ambulated out with steady gait with all belongings.
== END 2018-11-05 11:55 | disposition home or self-care (01) ==
LOC: EMR 10:00
DX: K80.20 Calculus of gallbladder without cholecystitis without obstruction (principal); Z88.0 Allergy status to penicillin
CPT/HCPCS: 36415; 80053; 81003; 83690; 85025; 96374; 96375; 99284; J1885; J2270; J2405

== ENCOUNTER 2018-12-27 06:49 | Emergency (ER) | payer MEDICAID ==
[~2018-12-27] VITALS: Ht 172.7 cm; Wt 72.6 kg
[~2018-12-27 06:49] MED LIST changes: +BUSPAR10 MG ORAL; +EPZICOM TABLET1 EAC1 ORAL; +SEROQUEL50 MG ORAL; +WELLBUTRIN SR200 MG ORAL; +ZOFRAN4 MG ORAL
[2018-12-27] MEDS ORDERED: Ketorolac 30mg Inj IM ONE (07:15)
[2018-12-27] MEDS ORDERED: ZITHROMAX250 MG ORAL (07:21)
[2018-12-27] MEDS ORDERED: TAMIFLU75 MG ORAL (07:21)
[2018-12-27] MEDS ORDERED: IBUPROFEN600 MG ORAL (07:21)
[2018-12-27 07:36] VITALS: BP 122/75
--- NOTE | 2018-12-27 07:39 | NUR ---
ED Nurse Note: Pt presented to ED c/o gen body aches x2 days. Pt is AAOx4 respirations are even and unlabored.
--- NOTE | 2018-12-27 07:40 | Emergency Room Report ---
History of Present Illness General Chief Complaint: Flu Like Symptoms Source: Patient Present Illness HPI 48-year-old male presents ED for evaluation. Patient complaining of sore throat , congestion and body aches 1 day. Pain is dull, 10 out of 10, nonradiating. Denies fevers or chills. States he received flu vaccine this year. History of HIVstates he is compliant with his medications. Denies sick contacts or recent travel. No other aggravating relieving factors. Denies any other associated symptoms Allergies: Coded Allergies: PENICILLINS (Unverified Allergy, Unknown, Rash, 04/16/18) Uncoded Allergies: PENICILLIN (Allergy, Intermediate, Rash, 06/16/17) Patient History Past Medical History: psych hx, HIV Past Surgical History: none Pertinent Family History: none Social History: Denies: smoking, alcohol use, drug use Immunizations: UTD Reviewed Nursing Documentation: PMH: Agreed; PSxH: Agreed Nursing Documentation-PMH Hx Cardiac Problems: No - hiv+, hep c, GALLSTONES History Of Psychiatric Problem: Yes - depression, adhd Review of Systems All Other Systems: negative except mentioned in HPI Physical Exam Vital Signs Date Time Temp Pulse Resp B/P (MAP) Pulse Ox O2 Delivery O2 Flow Rate FiO2 12/27/18 07:01 98.1 104 16 124/72 96 Room Air Sp02 EP Interpretation: reviewed, normal General Appearance: no apparent distress, alert, GCS 15, non-toxic Head: normocephalic, atraumatic Eyes: bilateral eye normal inspection, bilateral eye PERRL ENT: hearing grossly normal, no angioedema, normal voice, TMs + canals normal, pharyngeal erythema, tonsillar exudate Neck: full range of motion, supple, no meningismus, supple/symm/no masses Respiratory: chest non-tender, lungs clear, normal breath sounds, speaking full sentences Cardiovascular #1: regular rate, rhythm, no edema Cardiovascular #2: 2+ carotid (R), 2+ carotid (L), 2+ radial (R), 2+ radial (L) , 2+ dorsalis pedis (R), 2+ dorsalis pedis (L) Gastrointestinal: normal bowel sounds, non tender, soft, non-distended, no guarding, no rebound Rectal: deferred Genitourinary: normal inspection, no CVA tenderness Musculoskeletal: back normal, gait/station normal, normal range of motion, non- tender Neurologic: alert, oriented x3, responsive, motor strength/tone normal, sensory intact, speech normal Psychiatric: judgement/insight normal, memory normal, mood/affect normal, no suicidal/homicidal ideation Reflexes: 3+ bicep (R), 3+ bicep (L), 3+ tricep (R), 3+ tricep (L), 3+ knee (R) , 3+ knee (L) Skin: normal color, no rash, warm/dry, well hydrated Lymphatic: adenopathy Medical Decision Making Diagnostic Impression: Primary Impression: Pharyngitis Qualified Codes: J02.9 - Acute pharyngitis, unspecified ER Course Hospital Course 48-year-old male presents to ED complaining of sore throat + bodyaches Differential diagnoses include: URI, pharyngitis, otitis media Clinical course Patient placed on stretcher. After initial history, physical exam reveals a middle aged male in no acute distress. Bilateral TM unremarkable. There is pharyngeal erythema w/ tonsillar exudates. Noted lymphadenopathy. Discussed findings with patient. Consideration for pharyngitis versus viral/ influenza.. Patient received flu shot this year. Patient has tonsillar exudates with positive lymphadenopathy. We'll treat with antibiotics. Patient is allergic to penicillin we will prescribe Z-Eusebio Given Toradol in ED. Safe for discharge with close outpatient follow-up. Patient states he has PMD appt tomorrow Diagnosis - pharyngitis Stable and discharged home with prescriptions for Motrin, azithromycin, tamiflu. Instructed to followup with PMD. return to ED if symptoms recur or worsen Last Vital Signs Date Time Temp Pulse Resp B/P (MAP) Pulse Ox O2 Delivery O2 Flow Rate FiO2 12/27/18 07:01 98.1 104 16 124/72 96 Room Air Status: improved Disposition: HOME, SELF-CARE Condition: Stable Scripts Oseltamivir Phosphate (Tamiflu) 75 Mg Capsule 75 MG ORAL TWICE A DAY for 5 Days, CAP Prov: Jesús Aguilar MD 12/27/18 Azithromycin* (ZITHROMAX*) 250 Mg Tablet 250 MG ORAL DAILY, #6 TAB 0 Refills Take two tables once daily for 1 day, then one tablet once daily for 4 days. Prov: Jesús Aguilar MD 12/27/18 Ibuprofen* (MOTRIN*) 600 Mg Tablet 600 MG ORAL Q8H PRN for For Pain, #30 TAB 0 Refills Prov: Jesús Aguilar MD 12/27/18 Referrals: Susie Bravo [facility] Patient Instructions: Pharyngitis, [id number] Jesús Aguilar MD Dec 27, 2018 07:40
[2018-12-27 07:54] VITALS: BP 122/75
== END 2018-12-27 07:45 | disposition home or self-care (01) ==
LOC: EMR 07:25
DX: J02.9 Acute pharyngitis, unspecified (principal); F32.9 Major depressive disorder, single episode, unspecified
CPT/HCPCS: 96372; 99283

== ENCOUNTER 2019-07-10 14:48 | Emergency (ER) | payer MEDICAID ==
[~2019-07-10] VITALS: Ht 172.7 cm; Wt 72.6 kg
[~2019-07-10 14:48] MED LIST changes: +TAMIFLU75 MG ORAL; +ZITHROMAX250 MG ORAL
[2019-07-10 14:50] VITALS: BP 127/76
--- NOTE | 2019-07-10 14:58 | NUR ---
ED Nurse Note: Pt came in due to rashes on his upper and lower extremities x 3 weeks. Pt states it is itchy and uses a cream for it but didn't resolve. Also c/o dysuria. AAO x4 and ambulatory.
--- NOTE | 2019-07-10 15:26 | Emergency Room Report ---
History of Present Illness General Chief Complaint: Skin Rash/Abscess Source: Patient Present Illness HPI 49-year-old male presents to the emergency department with multiple complaints first complaint is dysuria that is 9 out of 10 severity x4 days denies penile discharge, testicular pain or tenderness, rashes, genital lesions, hematuria or swollen tender lymph nodes Denies recent unprotected intercourse or suspicion of STI's. Patient denies fevers or chills. Second complaint is patient states that he continues to have a persistent itchy rash on his lower extremities as well as upper extremities. Patient denies erythema he denies swelling of the lips or tongue denies difficulty breathing/wheezing. He reports he tried an unknown cream which did not provide any relief. He denies recent travel or ill contacts with similar symptoms he denies new body washes or soaps. He denies taking new medications otherwise denies blisters or sloughing of the skin. Last complaint is patient is requesting medication refill for psychiatric medications he states he is diagnosed with bipolar produces paperwork showing his diagnosis as well as medications that he is currently taking which are listed below. Denies chest pain, palpitations, dizziness, syncope or sudden onset headache. No additional aggravating or relieving factors in regards to his symptoms. Buspar 15mg Seroquel 200 mg Wellbutrin XL 150mg Allergies: Coded Allergies: PENICILLINS (Unverified Allergy, Unknown, Rash, 04/16/18) Uncoded Allergies: PENICILLIN (Allergy, Intermediate, Rash, 06/16/17) Patient History Past Medical History: see triage record, psych hx Past Surgical History: none Pertinent Family History: none Nursing Documentation-[facility] Past Medical History: No History, Except For Hx Cardiac Problems: No - hiv+, hep c, GALLSTONES History Of Psychiatric Problem: Yes - bipolar Review of Systems All Other Systems: negative except mentioned in HPI Physical Exam Vital Signs Date Time Temp Pulse Resp B/P (MAP) Pulse Ox O2 Delivery O2 Flow Rate FiO2 07/10/19 14:50 97.9 94 18 127/76 100 Room Air Sp02 EP Interpretation: reviewed, normal General Appearance: no apparent distress, alert, GCS 15, non-toxic Head: normocephalic, atraumatic Eyes: bilateral eye normal inspection, bilateral eye PERRL ENT: hearing grossly normal, normal voice Neck: full range of motion Respiratory: lungs clear, normal breath sounds, no wheezing, speaking full sentences Cardiovascular #1: regular rate, rhythm Gastrointestinal: non tender, soft, non-distended Genitourinary: normal inspection, no CVA tenderness Musculoskeletal: back normal, gait/station normal, normal range of motion, non- tender Neurologic: alert, oriented x3, responsive, motor strength/tone normal, sensory intact, speech normal, grossly normal Psychiatric: judgement/insight normal, anxious Skin: rash - multiple discrete (insect bites ) erythematous papules with excoriations. no blisters, no warmth, no vessicles. Lymphatic: no adenopathy Medical Decision Making PA Attestation Dr. Perales is my supervising Physician whom patient management has been discussed with. Diagnostic Impression: Primary Impression: UTI (urinary tract infection) Qualified Codes: N30.01 - Acute cystitis with hematuria Additional Impressions: Medication refill Rash and nonspecific skin eruption ER Course 49-year-old male presents to the emergency department with multiple complaints first complaint is dysuria that is 9 out of 10 severity x4 days denies penile discharge, testicular pain or tenderness, rashes, genital lesions, hematuria or swollen tender lymph nodes Denies recent unprotected intercourse or suspicion of STI's. Patient denies fevers or chills. Second complaint is patient states that he continues to have a persistent itchy rash on his lower extremities as well as upper extremities. Patient denies erythema he denies swelling of the lips or tongue denies difficulty breathing/wheezing. He reports he tried an unknown cream which did not provide any relief. He denies recent travel or ill contacts with similar symptoms he denies new body washes or soaps. He denies taking new medications otherwise denies blisters or sloughing of the skin. Last complaint is patient is requesting medication refill for psychiatric medications he states he is diagnosed with bipolar produces paperwork showing his diagnosis as well as medications that he is currently taking which are listed below. Denies chest pain, palpitations, dizziness, syncope or sudden onset headache. No additional aggravating or relieving factors in regards to his symptoms. Buspar 15mg Seroquel 200 mg Wellbutrin XL 150mg Buspar 15mg Seroquel 200 mg Wellbutrin XL 150mg Ddx considered but are not limited to cellulitis, scabies, insect bites, tic bites, spider bites, contact dermatitis, Drug reaction, allergic reaction, fungal infection, lice, UTI, STI just to name a few. Vital signs: are WNL, pt. is afebrile H&PE are most consistent with multiple insect bites with localized reaction and without secondary bacterial infection, need for psychiatric medication refill, and possible UTI. ORDERS: -UA: moderate bacteria TNTC WBC's and Leukocytes ED INTERVENTIONS: -PYridium PO DISCHARGE: At this time pt. is stable for d/c to home. Will provide printed patient care instructions, and any necessary prescriptions. Care plan and follow up instructions have been discussed with the patient prior to discharge. Labs Test 07/10/19 15:30 Urine Color Yellow Urine Appearance Slightly cloudy Urine pH 6 (4.5-8.0) Urine Specific [place] 1.020 (1.005-1.035) Urine Protein 2+ (NEGATIVE) Urine Glucose (UA) Negative (NEGATIVE) Urine Ketones Negative (NEGATIVE) Urine Blood Negative (NEGATIVE) Urine Nitrite Negative (NEGATIVE) Urine Bilirubin Negative (NEGATIVE) Urine Urobilinogen Normal MG/DL (0.0-1.0) Urine Leukocyte Esterase 3+ (NEGATIVE) Urine RBC 0-2 /HPF (0 - 0) Urine WBC Tntc /HPF (0 - 0) Urine Squamous Epithelial Cells None /LPF (NONE/OCC) Urine Bacteria Occasional /HPF (NONE) Last Vital Signs Date Time Temp Pulse Resp B/P (MAP) Pulse Ox O2 Delivery O2 Flow Rate FiO2 07/10/19 14:50 97.9 94 18 127/76 (93) 100 Room Air Disposition: HOME, SELF-CARE Condition: Stable Scripts Hydrocortisone 2% Cream (ANTI-ITCH 2% CREAM) Y Cr 1 APPLIC TP TID, #28.3 GM Prov: Darby Humphrey 07/10/19 Cephalexin* (KEFLEX*) 500 Mg Capsule 500 MG ORAL EVERY 12 HOURS for 7 Days, #14 CAP 0 Refills Prov: Darby Humphrey 07/10/19 Quetiapine Fumarate* (SEROQUEL*) 200 Mg Tablet 200 MG ORAL TWICE A DAY, #28 TAB Prov: Darby Humphrey 07/10/19 Bupropion Hcl* (WELLBUTRIN XL*) 150 Mg Tab.er.24h 150 MG ORAL DAILY for 14 Days, #14 TAB 0 Refills Prov: Darby Humphrey 07/10/19 Buspirone Hcl* (BUSPAR*) 10 Mg Tablet 10 MG ORAL THREE TIMES A DAY, #15 TAB 0 Refills Prov: Darby Humphrey 07/10/19 [facility]errals: [facility] (PCP) Patient Instructions: Medicine Refill at the Emergency Department, Rash, Urinary Tract Infection, [id number] Additional Instructions: Take medications as directed. Follow up with a Mental Health Specialist/ Psychiatrist in 3 days, even if your symptoms have resolved. --Please review [facility] resource information provided Return sooner to ED if new symptoms occur, or current symptoms become worse. - Please note that this Emergency Department Report was dictated using [employer] portfolio analyst technology software, occasionally this can lead to erroneous entry secondary to interpretation by the dictation equipment. Darby Humphrey Jul 10, 2019 15:26
[2019-07-10 15:49] LABS: APPEARANCE,URINE SLIGHTLY CLOUDY; BILIRUBIN, URINE NEGATIVE (NEGATIVE); GLUCOSE, URINE (UA) NEGATIVE (NEGATIVE); KETONES,URINE NEGATIVE (NEGATIVE); LEUKOCYTE ESTERASE ,URINE 3+ (NEGATIVE); NITRITE,URINE NEGATIVE (NEGATIVE); PH,URINE 6 (4.5-8.0); PROTEIN,URINE 2+ (NEGATIVE); UROBILINOGEN,URINE NORMAL MG/DL (0.0-1.0)
[2019-07-10 15:50] LABS: COLOR,URINE YELLOW
[2019-07-10] MEDS ORDERED: SEROQUEL200 MG ORAL (16:29)
[2019-07-10] MEDS ORDERED: WELLBUTRIN XL150 MG ORAL (16:29)
[2019-07-10] MEDS ORDERED: BUSPAR10 MG ORAL (16:29)
[2019-07-10] MEDS ORDERED: Phenazopyridine 200mg tab ORAL ONE (16:30)
[2019-07-10] MEDS ORDERED: ANTI-ITCH28 G1 TP (16:33)
[2019-07-10] MEDS ORDERED: CEPHALEXIN500 MG ORAL (16:33)
[2019-07-10 16:42] VITALS: BP 132/75
--- NOTE | 2019-07-10 16:42 | NUR ---
ER DISCHARGE NOTE: Patient is cleared to be discharged per PA, pt is aox4, on room air, with stable vital signs. pt was given dc and prescription instructions, pt was able to verbalize understanding, pt id band removed. pt is able to ambulate with steady gait. pt took all belongings.
== END 2019-07-10 16:42 | disposition home or self-care (01) ==
LOC: EMR 15:09
DX: N30.01 Acute cystitis with hematuria (principal); F31.9 Bipolar disorder, unspecified; Z76.0 Encounter for issue of repeat prescription; R21 Rash and other nonspecific skin eruption; B20 Human immunodeficiency virus [HIV] disease; B19.20 Unspecified viral hepatitis C without hepatic coma; Z88.0 Allergy status to penicillin
CPT/HCPCS: 81003; 87086; Z7502; 99283

== ENCOUNTER 2019-10-23 21:48 | Emergency (ER) | payer MEDICAID ==
[~2019-10-23] VITALS: Ht 172.7 cm; Wt 71.2 kg
[~2019-10-23 21:48] MED LIST changes: +ANTI-ITCH28 G1 TP; +CEPHALEXIN500 MG ORAL; +SEROQUEL200 MG ORAL; +WELLBUTRIN XL150 MG ORAL
[2019-10-23 22:40] VITALS: BP 143/76
[2019-10-23] MEDS ORDERED: OCUFLOX5 ML RIGHT EYE (23:05)
[2019-10-23] MEDS ORDERED: CEPHALEXIN500 MG ORAL (23:05)
[2019-10-23 23:15] VITALS: BP 143/76
--- NOTE | 2019-10-24 05:10 | Emergency Room Report ---
History of Present Illness General Chief Complaint: Eye Problems Source: Patient Present Illness HPI 49-year-old male presents ED for evaluation. Complaining of right eye pain and rash. States that earlier today he poked himself in the eye accidentally. States that since then he has had pain and redness and discharge from his eye. Notes photophobia. Pain is dull, 7 out of 10, nonradiating. Denies fevers or chills. Also states he has a rash to his abdomen x1 week. Erythematous. Itchy. Denies pain. Denies any known food or drug allergies no other aggravating relieving factors. Denies any other associated symptoms Allergies: Coded Allergies: PENICILLINS (Unverified Allergy, Unknown, Rash, 04/16/18) Uncoded Allergies: PENICILLIN (Allergy, Intermediate, Rash, 06/16/17) Patient History Past Medical History: HIV Past Surgical History: none Pertinent Family History: none Social History: Denies: smoking, alcohol use, drug use Immunizations: UTD Reviewed Nursing Documentation: PMH: Agreed; PSxH: Agreed Review of Systems All Other Systems: negative except mentioned in HPI Physical Exam Vital Signs Date Time Temp Pulse Resp B/P (MAP) Pulse Ox O2 Delivery O2 Flow Rate FiO2 10/23/19 22:37 98.4 78 16 143/76 (98) 96 Room Air Sp02 EP Interpretation: reviewed, normal General Appearance: no apparent distress, alert, GCS 15, non-toxic Head: normocephalic Eyes: right eye other - conjunctivitis; left eye normal inspection; bilateral eye PERRL, bilateral eye EOMI ENT: hearing grossly normal, normal pharynx, no angioedema, normal voice Neck: normal inspection Respiratory: normal inspection Cardiovascular #1: normal inspection Gastrointestinal: normal inspection Rectal: deferred Genitourinary: no CVA tenderness Musculoskeletal: normal inspection Neurologic: alert, motor strength/tone normal, oriented x3, sensory intact, responsive, speech normal Psychiatric: normal inspection Skin: other - erythematous/scaly rash to abdomen. nonerythematous base. no discharge Lymphatic: normal inspection Medical Decision Making Diagnostic Impression: Primary Impression: Conjunctivitis Qualified Codes: H10.31 - Unspecified acute conjunctivitis, right eye Additional Impression: Rash and nonspecific skin eruption ER Course Hospital Course 49 yo M presents with R eye discharge/pain. rash Differential diagnoses include: conjunctivitis, traumatic iritis, foreign body, corneal abrasion Clinical course Patient placed on stretcher. After initial history, physical exam revealed a middle-aged male no acute distress. Notable discharge from the right eye. Very injected and erythematous. Photosensitivity noted. Good extraocular movements There is also a erythematous scaly rash noted to the abdomen. Nonerythematous base. No discharge. Discussed findings with the patient. Will discharge with ophthalmic antibiotics. Systemic antibiotics for the rash. Patient also be given an eye patch. Safe for discharge for close outpatient follow-up. States he has a PMD appointment in the morning Diagnosis - conjunctivitis, rash Stable and discharged to home with prescription for Ocuflox, keflex. Followup with PMD/Optho. Return to ED if symptoms recur or worsen Last Vital Signs Date Time Temp Pulse Resp B/P (MAP) Pulse Ox O2 Delivery O2 Flow Rate FiO2 10/23/19 23:15 98.4 78 16 143/76 96 Room Air Status: improved Disposition: HOME, SELF-CARE Condition: Stable Scripts Cephalexin* (KEFLEX*) 500 Mg Capsule 500 MG ORAL EVERY 6 HOURS for 7 Days, CAP Prov: Jesús Aguilar MD 10/23/19 Ofloxacin (OCUFLOX) 5 Ml Drops 1 DROP RIGHT EYE QID for 7 Days, ML Prov: Jesús Aguilar MD 10/23/19 Referrals: NON PHYSICIAN (PCP) Patient Instructions: Bacterial Conjunctivitis Jesús Aguilar MD Oct 24, 2019 05:10
== END 2019-10-23 23:15 | disposition home or self-care (01) ==
LOC: EMR 22:59
DX: H10.31 Unspecified acute conjunctivitis, right eye (principal); R21 Rash and other nonspecific skin eruption; Z88.0 Allergy status to penicillin; B20 Human immunodeficiency virus [HIV] disease
CPT/HCPCS: 99282

== ENCOUNTER 2020-04-02 00:06 | Emergency (ER) | payer MEDICAID ==
[~2020-04-02] VITALS: Ht 172.7 cm; Wt 77.1 kg
[~2020-04-02 00:06] MED LIST changes: +OCUFLOX5 ML RIGHT EYE
[2020-04-02 00:22] VITALS: BP 138/84
[2020-04-02] MEDS ORDERED: Morphine Sulfate 4mg/ml Inj (IV USE ONLY) IVP ONE (00:45)
[2020-04-02] MEDS ORDERED: Omnipaque-300 100ml vial INJ PRN (00:45)
[2020-04-02] MEDS ORDERED: Ketorolac 30mg Inj IV ONE (00:45)
[2020-04-02 01:04] LABS: HEMATOCRIT 39.7 % (42.0-52.0); HEMOGLOBIN 12.8 G/DL (14.2-18.0); MEAN CORPUSCULAR VOLUME 103 FL (80-99); PLATELET COUNT 225 K/UL (150-450); RED BLOOD COUNT 3.85 M/UL (4.70-6.10); WHITE BLOOD COUNT 6.2 K/UL (4.8-10.8)
[2020-04-02 01:10] LABS: ANION GAP 6 mmol/L (5-15); BLOOD UREA NITROGEN 19 mg/dL (7-18); CALCIUM 8.8 MG/DL (8.5-10.1); CARBON DIOXIDE 28 MMOL/L (21-32); CHLORIDE 103 MMOL/L (98-107); CREATININE 1.1 MG/DL (0.55-1.30); POTASSIUM 3.8 MMOL/L (3.5-5.1); SODIUM 136 MMOL/L (136-145)
[2020-04-02 01:17] LABS: ALANINE AMINOTRANSFERASE 111 U/L (12-78); ALBUMIN 3.3 G/DL (3.4-5.0); ALBUMIN/GLOBULIN RATIO 0.8 (1.0-2.7); ALKALINE PHOSPHATASE 99 U/L (46-116); ASPARTATE AMINO TRANSFERASE 91 U/L (15-37); BILIRUBIN,TOTAL 0.2 MG/DL (0.2-1.0)
--- NOTE | 2020-04-02 01:54 | Emergency Room Report ---
History of Present Illness General Chief Complaint: Abdominal Pain Source: Patient, Medical Record Present Illness HPI 50-year-old male presents to ED complaining of abdominal pain. Pain is right- sided, sharp, 8 out of 10, nonradiating. Denies nausea or vomiting. Denies fevers or chills. Denies chest pain. Status post cholecystectomy. No other aggravating relieving factors. 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 COVID-19 Screening: Negative COVID-19 COVID-19 Testing Source: PCP 2 WEEKS AGO Patient History Past Medical History: none Past Surgical History: lexi Pertinent Family History: none Social History: Denies: smoking, alcohol use, drug use Immunizations: UTD Reviewed Nursing Documentation: PMH: Agreed; PSxH: Agreed Review of Systems All Other Systems: negative except mentioned in HPI Physical Exam Vital Signs Date Time Temp Pulse Resp B/P (MAP) Pulse Ox O2 Delivery O2 Flow Rate FiO2 04/02/20 00:09 98.1 95 20 138/84 (102) 98 Room Air Sp02 EP Interpretation: reviewed, normal General Appearance: no apparent distress, alert, GCS 15, non-toxic Head: normocephalic, atraumatic Eyes: bilateral eye normal inspection, bilateral eye PERRL ENT: hearing grossly normal, normal pharynx, no angioedema, normal voice Neck: full range of motion, supple/symm/no masses Respiratory: chest non-tender, lungs clear, normal breath sounds, speaking full sentences Cardiovascular #1: regular rate, rhythm, no edema Cardiovascular #2: 2+ carotid (R), 2+ carotid (L), 2+ radial (R), 2+ radial (L) , 2+ dorsalis pedis (R), 2+ dorsalis pedis (L) Gastrointestinal: normal bowel sounds, soft, non-distended, no guarding, no rebound, tenderness - RUQ Rectal: deferred Genitourinary: normal inspection, no CVA tenderness Musculoskeletal: back normal, normal range of motion, gait/station normal, non- tender Neurologic: alert, motor strength/tone normal, oriented x3, sensory intact, responsive, speech normal Psychiatric: judgement/insight normal, memory normal, mood/affect normal, no suicidal/homicidal ideation Reflexes: 3+ bicep (R), 3+ bicep (L), 3+ tricep (R), 3+ tricep (L), 3+ knee (R) , 3+ knee (L) Skin: no rash Lymphatic: no adenopathy Medical Decision Making Diagnostic Impression: Primary Impression: Constipation Qualified Codes: K59.00 - Constipation, unspecified ER Course Hospital Course 50-year-old male presents with right upper quadrant pain. History of cholecystectomy Differential diagnosis includes-appendicitis, cholecystitis, small bowel obstruction, gastritis, Clinical course Patient placed on stretcher. After initial history and physical I ordered labs , IV fluids, pain medications and CT Labs - no leukocytosis, electrolytes ok, LFTs normal CT -fecal impaction noted in right upper quadrant I discussed findings with patient. Labs unremarkable. CT otherwise unremarkable. Will discharge home with stool softeners. Safe for discharge close outpatient follow-up I feel this is a highly complex case requiring extensive working including EKG/ Rhythm strip, Xray/CT/US, Blood/urine lab work, repeat exams while in ED, and administration of strong opiates/narcotics for pain control, admission to hospital or close patient follow up. Diagnosis - constipation Stable and discharged to home with Rx Mag citrate, Colace. instructed on high- fiber diet. Followup with PMD. Return to ED if symptoms recur or worsen Labs Test 04/02/20 00:45 White Blood Count 6.2 K/UL (4.8-10.8) Red Blood Count 3.85 M/UL (4.70-6.10) Hemoglobin 12.8 G/DL (14.2-18.0) Hematocrit 39.7 % (42.0-52.0) Mean Corpuscular Volume 103 FL (80-99) Mean Corpuscular Hemoglobin 33.2 PG (27.0-31.0) Mean Corpuscular Hemoglobin Concent 32.2 G/DL (32.0-36.0) Red Cell Distribution Width 13.0 % (11.6-14.8) Platelet Count 225 K/UL (150-450) Mean Platelet Volume 5.8 FL (6.5-10.1) Neutrophils (%) (Auto) % (45.0-75.0) Lymphocytes (%) (Auto) % (20.0-45.0) Monocytes (%) (Auto) % (1.0-10.0) Eosinophils (%) (Auto) % (0.0-3.0) Basophils (%) (Auto) % (0.0-2.0) Sodium Level 136 MMOL/L (136-145) Potassium Level 3.8 MMOL/L (3.5-5.1) Chloride Level 103 MMOL/L (98-107) Carbon Dioxide Level 28 MMOL/L (21-32) Anion Gap 6 mmol/L (5-15) Blood Urea Nitrogen 19 mg/dL (7-18) Creatinine 1.1 MG/DL (0.55-1.30) Estimat Glomerular Filtration Rate > 60 mL/min (>60) Glucose Level 107 MG/DL (74-106) Calcium Level 8.8 MG/DL (8.5-10.1) Total Bilirubin 0.2 MG/DL (0.2-1.0) Aspartate Amino Transf (AST/SGOT) 91 U/L (15-37) Alanine Aminotransferase (ALT/SGPT) 111 U/L (12-78) Alkaline Phosphatase 99 U/L (46-116) Total Protein 7.7 G/DL (6.4-8.2) Albumin 3.3 G/DL (3.4-5.0) Globulin 4.4 g/dL Albumin/Globulin Ratio 0.8 (1.0-2.7) Lipase 275 U/L (73-393) CT/MRI/US Diagnostic Results CT/MRI/US Diagnostic Results : Imaging Test Ordered: CT A/P Impression COMPARISON: No relevant prior studies available. FINDINGS: Lung bases: Small amount of posterior dependent atelectasis. ABDOMEN: Liver: Unremarkable. No mass. Gallbladder and bile ducts: Cholecystectomy clips. No ductal dilation. Pancreas: Unremarkable. No mass. No ductal dilation. Spleen: Unremarkable. No splenomegaly. Adrenals: Unremarkable. No mass. Kidneys and ureters: Unremarkable. No solid mass. No hydronephrosis. Stomach and bowel: Unremarkable. No obstruction. No mucosal thickening. PELVIS: Appendix: normal Bladder: Unremarkable. No mass. Reproductive: Unremarkable as visualized. ABDOMEN and PELVIS: Intraperitoneal space: Unremarkable. No free air. No significant fluid collection. Bones/joints: 1 cm anterolisthesis of L5 on S1 with associated old pars defect of L5 . Soft tissues: Unremarkable. Vasculature: Small amount of atherosclerotic calcifications. No abdominal aortic aneurysm. Lymph nodes: Mildly enlarged right inguinal lymph node measuring 2.1 cm in long axis, nonspecific. IMPRESSION: 1. No inflammatory change and pelvis. 2. Mildly enlarged right inguinal lymph node measuring 2.1 cm in long axis, nonspecific. Last Vital Signs Date Time Temp Pulse Resp B/P (MAP) Pulse Ox O2 Delivery O2 Flow Rate FiO2 04/02/20 00:22 95 20 Room Air 04/02/20 00:22 98.1 138/84 98 Status: improved Disposition: HOME, SELF-CARE Condition: Stable Scripts Magnesium Citrate (CITRATE OF MAGNESIA) 296 Ml Solution 150 ML PO DAILY for 2 Days, #296 ML Prov: Jesús Aguilar MD 04/02/20 Docusate Sodium* (COLACE*) 100 Mg Capsule 100 MG ORAL THREE TIMES A DAY, #30 CAP Prov: Jesús Aguilar MD 04/02/20 Referrals: [facility] (PCP) Jesús Aguilar MD Apr 02, 2020 01:54
--- NOTE | 2020-04-02 02:28 | Diagnostic Imaging Report ---
EXAM: CT Abdomen and Pelvis With Intravenous Contrast CLINICAL HISTORY: long hx of abd pain which was gall stones, gall bladder removed 7 months ago, HIV/Hep C, and Biliary colic per ROMEO Dhaliwal on 04/02 02:18 TECHNIQUE: Axial computed tomography images of the abdomen and pelvis with intravenous contrast. CTDI is 4.8 mGy and DLP is 265.5 mGy-cm. One or more of the following dose reduction techniques were used: automated exposure control, adjustment of the mA and/or kV according to patient size, use of iterative reconstruction technique. Coronal and sagittal reformatted images were created and reviewed. COMPARISON: No relevant prior studies available. FINDINGS: Lung bases: Small amount of posterior dependent atelectasis. ABDOMEN: Liver: Unremarkable. No mass. Gallbladder and bile ducts: Cholecystectomy clips. No ductal dilation. Pancreas: Unremarkable. No mass. No ductal dilation. Spleen: Unremarkable. No splenomegaly. Adrenals: Unremarkable. No mass. Kidneys and ureters: Unremarkable. No solid mass. No hydronephrosis. Stomach and bowel: Unremarkable. No obstruction. No mucosal thickening. PELVIS: Appendix: normal Bladder: Unremarkable. No mass. Reproductive: Unremarkable as visualized. ABDOMEN and PELVIS: Intraperitoneal space: Unremarkable. No free air. No significant fluid collection. Bones/joints: 1 cm anterolisthesis of L5 on S1 with associated old pars defect of L5 . Soft tissues: Unremarkable. Vasculature: Small amount of atherosclerotic calcifications. No abdominal aortic aneurysm. Lymph nodes: Mildly enlarged right inguinal lymph node measuring 2.1 cm in long axis, nonspecific. IMPRESSION: 1. No inflammatory change and pelvis. 2. Mildly enlarged right inguinal lymph node measuring 2.1 cm in long axis, nonspecific.
[2020-04-02] MEDS ORDERED: CITRATE OF MAG296 ML PO (02:43)
[2020-04-02] MEDS ORDERED: COLACE100 MG ORAL (02:43)
[2020-04-02 02:45] VITALS: BP 138/84
== END 2020-04-02 02:45 | disposition home or self-care (01) ==
LOC: EMR 00:29
DX: K59.00 Constipation, unspecified (principal); Z88.0 Allergy status to penicillin; Z90.49 Acquired absence of other specified parts of digestive tract
CPT/HCPCS: 36415; 74177; 80053; 83690; 85025; 96374; 96375; J1885; J2270; Q9967; Z7502; 99284

== ENCOUNTER 2020-06-27 18:42 | Emergency (ER) | payer MEDICAID ==
[~2020-06-27] VITALS: Ht 172.7 cm; Wt 77.1 kg
[~2020-06-27 18:42] MED LIST changes: +CITRATE OF MAG296 ML PO; +COLACE100 MG ORAL
--- NOTE | 2020-06-27 18:59 | Emergency Room Report ---
History of Present Illness General Chief Complaint: Upper Respiratory Illness Source: Patient Present Illness HPI Disclaimer: Please note that this report is being documented using [employer] technology. This can lead to erroneous entry secondary to incorrect interpretation by the dictating instrument. HPI: 50-year-old male history of HIV on retroviral therapy with undetectable viral load presents for evaluation of fever, shortness of breath. Symptoms ongoing for several days. He reports subjective fevers that are higher at night with diaphoresis. Intermittent cough, diffuse myalgias and arthralgias though particularly pain over the upper back and over the chest wall. He reports exertional dyspnea. Denies chest pressure, palpitations, nausea, vomiting or diarrhea. Was seen by his PMD who is concerned he may have pneumonia. Brought in for evaluation. Notes decreased appetite but continues to drink fluids. PMH: HIV, bipolar disorder, schizophrenia PSH: Reviewed Allergies: Penicillin Social Hx: Reviewed Allergies: Coded Allergies: PENICILLINS (Unverified Allergy, Unknown, Rash, 04/16/18) Uncoded Allergies: PENICILLIN (Allergy, Intermediate, Rash, 06/16/17) COVID-19 Screening Contact w/high risk pt: No Recent Travel to affected area: No Experienced COVID-19 symptoms?: Yes COVID-19 Testing performed COMIC BOOK WRITER: No Review of Systems All Other Systems: negative except mentioned in HPI Physical Exam Vital Signs Date Time Temp Pulse Resp B/P (MAP) Pulse Ox O2 Delivery O2 Flow Rate FiO2 06/27/20 18:46 99.3 123 24 131/77 (95) 96 Room Air General: Awake and alert, appears uncomfortable HEENT: NC/AT. EOMI. Cardiovascular: Tachycardic. S1 and S2 normal. No murmur appreciated Resp: Normal work of breathing. No cough, wheezing or crackles appreciated Abdomen: Abdomen is soft, nondistended. Nontender Skin: Intact. No abrasions, laceration or rash over the exposed skin MSK: Normal tone and bulk. Moving all extremities. No obvious deformity. Neuro: Awake and alert. Mentating appropriately. Back: Tender over the left trapezius beginning at the base of the skull extending down the neck and over the left shoulder. Particular tenderness just above the scapula. No tenderness in the midline in the cervical or thoracic spine. No step-off or deformity. Medical Decision Making Diagnostic Impression: Primary Impression: Viral syndrome Additional Impressions: Thrombocytosis Myalgia ER Course 50-year-old male history of HIV reportedly undetectable viral load presents for evaluation of fever, myalgias, fatigue and shortness of breath. Differential includes not limited to viral syndrome, pneumonia, COVID-19 infection, arrhythmia, ACS, pneumothorax among others. Chest x-ray does not show evidence of infiltrate. Labs are returned within normal limits aside from thrombocytopenia. Patient will follow this up with his PMD. May be a viral syndrome the patient states he received a flu shot 2 weeks ago. Will treat his myalgias with muscle relaxer and lidocaine patches he appears to have significant spasm over the left side of the upper shoulder. Otherwise prescribed NSAIDs and follow-up with his doctor which is scheduled for 3 days from now. Stable for outpatient follow-up. He feels reassured by these lab results. Instructed to return with new or worsening symptoms. Laboratory Tests Test 06/27/20 19:30 White Blood Count 10.6 K/UL (4.8-10.8) Red Blood Count 3.74 M/UL (4.70-6.10) L Hemoglobin 13.0 G/DL (14.2-18.0) L Hematocrit 36.4 % (42.0-52.0) L Mean Corpuscular Volume 97 FL (80-99) Mean Corpuscular Hemoglobin 34.7 PG (27.0-31.0) H Mean Corpuscular Hemoglobin Concent 35.6 G/DL (32.0-36.0) Red Cell Distribution Width 12.6 % (11.6-14.8) Platelet Count 535 K/UL (150-450) H Mean Platelet Volume 4.8 FL (6.5-10.1) L Neutrophils (%) (Auto) 38.4 % (45.0-75.0) L Lymphocytes (%) (Auto) 45.3 % (20.0-45.0) H Monocytes (%) (Auto) 12.1 % (1.0-10.0) H Eosinophils (%) (Auto) 2.8 % (0.0-3.0) Basophils (%) (Auto) 1.4 % (0.0-2.0) Urine Color Yellow Urine Appearance Clear Urine pH 6 (4.5-8.0) Urine Specific [place] 1.015 (1.005-1.035) Urine Protein 2+ (NEGATIVE) H Urine Glucose (UA) Negative (NEGATIVE) Urine Ketones Negative (NEGATIVE) Urine Blood Negative (NEGATIVE) Urine Nitrite Negative (NEGATIVE) Urine Bilirubin Negative (NEGATIVE) Urine Urobilinogen 1 MG/DL (0.0-1.0) H Urine Leukocyte Esterase Negative (NEGATIVE) Urine RBC 0-2 /HPF (0 - 0) H Urine WBC 0-2 /HPF (0 - 0) Urine Squamous Epithelial Cells None /LPF (NONE/OCC) Urine Bacteria None /HPF (NONE) Sodium Level 136 MMOL/L (136-145) Potassium Level 4.6 MMOL/L (3.5-5.1) Chloride Level 101 MMOL/L (98-107) Carbon Dioxide Level 28 MMOL/L (21-32) Anion Gap 7 mmol/L (5-15) Blood Urea Nitrogen 13 mg/dL (7-18) Creatinine 0.9 MG/DL (0.55-1.30) Estimated Glomerular Filtration Rate > 60 mL/min (>60) Glucose Level 101 MG/DL (74-106) Calcium Level 9.9 MG/DL (8.5-10.1) Total Bilirubin 0.3 MG/DL (0.2-1.0) Aspartate Amino Transferase (AST) 44 U/L (15-37) H Alanine Aminotransferase (ALT) 59 U/L (12-78) Alkaline Phosphatase 138 U/L (46-116) H Troponin I 0.000 ng/mL (0.000-0.056) Pro-B-Type Natriuretic Peptide 20 pg/mL (0-125) Total Protein 9.5 G/DL (6.4-8.2) H Albumin 3.1 G/DL (3.4-5.0) L Globulin 6.4 g/dL Albumin/Globulin Ratio 0.5 (1.0-2.7) L Microbiology Date/Time Source Procedure Growth Status 06/27/20 19:30 Nasopharynx SARS-CoV-2 RdRp Gene Assay - Final Complete Chest X-Ray Diagnostic Results Chest X-Ray Diagnostic Results : Chest X-Ray Ordered: Yes # of Views/Limited/Complete: 1 View Indication: Shortness of Breath EP Interpretation: Yes Interpretation: no consolidation, no effusion, no pneumothorax, no acute cardiopulmonary disease Impression: No acute disease Electronically Signed by: Electronically signed by Dr. Jesus Perales Last Vital Signs Date Time Temp Pulse Resp B/P (MAP) Pulse Ox O2 Delivery O2 Flow Rate FiO2 06/27/20 18:46 99.3 123 24 131/77 (95) 96 Room Air Disposition: HOME, SELF-CARE Condition: Stable Scripts Lidocaine Patch* (Lidoderm Patch*) 1 Each Adh..patch 1 PATCH TOPIC DAILY, #7 PATCH 0 Refills Patch(es) may remain in place for up to 12 hours in any 24-hour period. Prov: Jesus Perales MD 06/27/20 Methocarbamol* (ROBAXIN-750*) 750 Mg Tablet 750 MG PO QID, #28 TAB 0 Refills Prov: Jesus Perales MD 06/27/20 Ibuprofen* (MOTRIN*) 600 Mg Tablet 600 MG ORAL Q6H PRN for For Pain, #30 TAB 0 Refills Prov: Jesus Perales MD 06/27/20 Jesus Perales MD Jun 27, 2020 18:59
[2020-06-27] MEDS ORDERED: Acetaminophen 500mg (ES) tab ORAL ONE (19:00)
--- NOTE | 2020-06-27 19:16 | Diagnostic Imaging Report ---
EXAM: XR Chest, 1 View CLINICAL HISTORY: SOB TECHNIQUE: Frontal view of the chest. COMPARISON: No relevant prior studies available. FINDINGS: Lungs: Low lung volumes with bronchovascular crowding. No consolidation, pleural effusion, or pneumothorax. Pleural space: See above. Heart: Unremarkable. No cardiomegaly. Mediastinum: Unremarkable. Bones/joints: No acute abnormality IMPRESSION: 1. Low lung volumes with bronchovascular crowding. 2. Otherwise no acute cardiopulmonary disease. 3. If there is continued concern, recommend frontal and lateral chest radiographs or CT.
[2020-06-27 19:30] VITALS: BP 128/82
[2020-06-27 19:40] LABS: BASOPHILS % (AUTO) 1.4 % (0.0-2.0); EOSINOPHILS % (AUTO) 2.8 % (0.0-3.0); HEMATOCRIT 36.4 % (42.0-52.0); LYMPHOCYTES % (AUTO) 45.3 % (20.0-45.0); MEAN CORPUSCULAR VOLUME 97 FL (80-99); MONOCYTES % (AUTO) 12.1 % (1.0-10.0); NEUTROPHILS % (AUTO) 38.4 % (45.0-75.0); PLATELET COUNT 535 K/UL (150-450); RED BLOOD COUNT 3.74 M/UL (4.70-6.10); RED CELL DISTRIBUTION WIDTH 12.6 % (11.6-14.8); WHITE BLOOD COUNT 10.6 K/UL (4.8-10.8)
[2020-06-27 19:48] LABS: APPEARANCE,URINE CLEAR; BILIRUBIN, URINE NEGATIVE (NEGATIVE); GLUCOSE, URINE (UA) NEGATIVE (NEGATIVE); KETONES,URINE NEGATIVE (NEGATIVE); LEUKOCYTE ESTERASE ,URINE NEGATIVE (NEGATIVE); NITRITE,URINE NEGATIVE (NEGATIVE); PH,URINE 6 (4.5-8.0); PROTEIN,URINE 2+ (NEGATIVE); UROBILINOGEN,URINE 1 MG/DL (0.0-1.0)
[2020-06-27 19:51] LABS: ANION GAP 7 mmol/L (5-15); BLOOD UREA NITROGEN 13 mg/dL (7-18); CALCIUM 9.9 MG/DL (8.5-10.1); CARBON DIOXIDE 28 MMOL/L (21-32); CHLORIDE 101 MMOL/L (98-107); CREATININE 0.9 MG/DL (0.55-1.30); POTASSIUM 4.6 MMOL/L (3.5-5.1); SODIUM 136 MMOL/L (136-145)
[2020-06-27 19:54] LABS: COLOR,URINE YELLOW
[2020-06-27 19:56] LABS: ALANINE AMINOTRANSFERASE 59 U/L (12-78); ALBUMIN 3.1 G/DL (3.4-5.0); ALBUMIN/GLOBULIN RATIO 0.5 (1.0-2.7); ALKALINE PHOSPHATASE 138 U/L (46-116); ASPARTATE AMINO TRANSFERASE 44 U/L (15-37); BILIRUBIN,TOTAL 0.3 MG/DL (0.2-1.0)
[2020-06-27] MEDS ORDERED: HYDROcodone/Acetamin 7.5/325 tab ORAL ONE (20:30)
[2020-06-27] MEDS ORDERED: IBUPROFEN600 M1 ORAL (20:40)
[2020-06-27] MEDS ORDERED: ROBAXIN-750750 MG PO (20:45)
[2020-06-27] MEDS ORDERED: LIDODERM700 M1 TOPIC (20:45)
[2020-06-27 20:53] VITALS: BP 127/87
== END 2020-06-27 20:54 | disposition home or self-care (01) ==
LOC: EMR 19:41
DX: B34.9 Viral infection, unspecified (principal); D47.3 Essential (hemorrhagic) thrombocythemia; M79.10 Myalgia, unspecified site; B20 Human immunodeficiency virus [HIV] disease; Z88.0 Allergy status to penicillin; F31.9 Bipolar disorder, unspecified; F20.9 Schizophrenia, unspecified
CPT/HCPCS: 36415; 71045; 80053; 81003; 83880; 84484; 85025; 96360; J7030; U0002; Z7502; 99284

== ENCOUNTER 2020-07-06 22:51 | Emergency (ER) | payer MEDICAID ==
[~2020-07-06] VITALS: Ht 172.7 cm; Wt 71.2 kg
[~2020-07-06 22:51] MED LIST changes: +IBUPROFEN600 M1 ORAL; +LIDODERM700 M1 TOPIC; +ROBAXIN-750750 MG PO
--- NOTE | 2020-07-06 22:57 | NUR ---
ED Nurse Note: patient not in waiting room at this time.
--- NOTE | 2020-07-06 23:10 | NUR ---
ED Nurse Note: Patient walked into the ED with c/o "bump at chest area", pt stated that the bump was at his upper back a few days ago and was now at medial chest area. Pain is non radiating. Patient denies SOB/, n&v, fever and chills. Patient was taking ibuprofen for the pain. Triage HR at 120's. Patient is AAOX4 and ambulatory. Placed on monitor bed
--- NOTE | 2020-07-06 23:11 | NUR ---
ED Nurse Note: ERMD at bedside
[2020-07-06] MEDS ORDERED: Omnipaque 350 100ml vial INJ PRN (23:15)
[2020-07-06] MEDS ORDERED: Thiamine 100mg tab ORAL ONE (23:30)
--- NOTE | 2020-07-06 23:30 | NUR ---
ED Nurse Note: Blood, urine, rapid covid and cultures sent to lab.
[2020-07-06 23:45] VITALS: BP 118/73
[2020-07-06 23:49] LABS: APPEARANCE,URINE CLEAR; BILIRUBIN, URINE NEGATIVE (NEGATIVE); COLOR,URINE PALE YELLOW; GLUCOSE, URINE (UA) NEGATIVE (NEGATIVE); KETONES,URINE NEGATIVE (NEGATIVE); LEUKOCYTE ESTERASE ,URINE NEGATIVE (NEGATIVE); NITRITE,URINE NEGATIVE (NEGATIVE); PH,URINE 5 (4.5-8.0); PROTEIN,URINE 3+ (NEGATIVE); UROBILINOGEN,URINE NORMAL MG/DL (0.0-1.0)
[2020-07-06 23:55] LABS: ANION GAP 12 mmol/L (5-15); BLOOD UREA NITROGEN 20 mg/dL (7-18); CALCIUM 9.2 MG/DL (8.5-10.1); CARBON DIOXIDE 22 MMOL/L (21-32); CHLORIDE 100 MMOL/L (98-107); CREATININE 0.9 MG/DL (0.55-1.30); POTASSIUM 3.8 MMOL/L (3.5-5.1); SODIUM 134 MMOL/L (136-145)
[2020-07-06 23:57] LABS: BASOPHILS % (AUTO) 0.7 % (0.0-2.0); EOSINOPHILS % (AUTO) 2.3 % (0.0-3.0); HEMATOCRIT 41.2 % (42.0-52.0); HEMOGLOBIN 13.8 G/DL (14.2-18.0); LYMPHOCYTES % (AUTO) 26.1 % (20.0-45.0); MEAN CORPUSCULAR VOLUME 84 FL (80-99); MONOCYTES % (AUTO) 6.1 % (1.0-10.0); NEUTROPHILS % (AUTO) 64.7 % (45.0-75.0); PLATELET COUNT 209 K/UL (150-450); RED BLOOD COUNT 4.92 M/UL (4.70-6.10); RED CELL DISTRIBUTION WIDTH 12.5 % (11.6-14.8); WHITE BLOOD COUNT 8.1 K/UL (4.8-10.8)
[2020-07-07 00:07] LABS: ALANINE AMINOTRANSFERASE 110 U/L (12-78); ALBUMIN 3.1 G/DL (3.4-5.0); ALBUMIN/GLOBULIN RATIO 0.5 (1.0-2.7); ALKALINE PHOSPHATASE 119 U/L (46-116); ASPARTATE AMINO TRANSFERASE 151 U/L (15-37); BILIRUBIN,TOTAL 0.4 MG/DL (0.2-1.0)
[2020-07-07] MEDS ORDERED: Clindamycin 600mg 50 ML IV SCH (00:15)
[2020-07-07] MEDS ORDERED: LORazepam Inj 2mg/ml 1ml IV ONE (00:15)
--- NOTE | 2020-07-07 00:30 | NUR ---
ED Nurse Note: To CT scan per bed
[2020-07-07] MEDS ORDERED: PROVENTIL HFA6.7 G1 IH (00:47)
[2020-07-07] MEDS ORDERED: ONDANSETRON ODT4 MG BC (00:47)
[2020-07-07] MEDS ORDERED: BACTRIM DS TAB1 EAC1 ORAL (00:47)
--- NOTE | 2020-07-07 00:47 | Emergency Room Report ---
History of Present Illness General Chief Complaint: Chest Pain Source: Patient Present Illness HPI 50-year-old male with past medical history of HIV, hep C, presents with complaint of lump on left chest x2 weeks. Also endorses shortness of breath, dry cough, and nausea. States that the left chest discomfort has been getting worse over the past 2 weeks. Initially described as left shoulder pain, today it is intermittent left chest discomfort. It is reproducible with palpation. According to patient, he is compliant with his heart therapy. Last viral load was undetectable. CD4 count is greater than 500 He actively endorses methamphetamine use prior to arrival. Also states that he drinks 1 bottle of wine yesterday. Denies any recent travel, sick contacts, antibiotic use, fevers, chills, hematuria, dysuria, melena, hematochezia, abdominal pain or other symptoms. The patient's symptoms were gradual onset, severity was moderate, duration since 14 days. Quality: Discomfort Past medical history: HIV, hep C, polysubstance abuse Past surgical history: Denies Smoking: Positive Alcohol use: Heavy Drug use: Methamphetamines Review of systems: CONST: No fevers or chills, No night sweats PULMONARY: ++ Dry cough, ++ shortness of breath CARDIAC: ++ chest discomfort no palpitations GI: No vomiting, No diarrhea , No melena_or_BRBPR : No dysuria, No hematuria, No discharge NEURO: No new_focal_weakness_or_numbness, No confusion, No vision changes 14 point Review of Systems is otherwise negative except per HPI Physical Exam: GENERAL: Awake_alert_ nontoxic, no acute distress Spo2 97% on RA -normal EYES: Extraocular muscles are intact. Conjunctivae clear. Lids without swelling ENT: External nose and ear normal_in_appearance. Oropharynx clear. Head_atraumatic, Moist_oral_mucosa NECK: No JVD. No meningismus. No thyromegaly. Supple. Trachea midline RESP: Normal respiratory effort. Symmetric rise. No stridor. Sandra r_to_auscultation_No_rales_No_wheezes CARDIAC: Tachycardic and regular rhytm. No_significant pedal edema. ABDOMEN: Soft. Nondistended. Nontender_No_rebound_or_guarding. MSK: Normal muscle tone, without rigidity. Extremities without asymmetric deformity or swelling. SKIN: Warm and dry. No visible cyanosis or pallor. No petechia. No purpura NEUROLOGIC: Alert, oriented x3. Motor_and_sensation_grossly_intact. No truncal ataxia. Gait_normal Psych: Normal mood and affect, normal judgment and insight - COORDINATION OF CARE Case was discussed with: Patient , Patient's Physician Any labs and imaging that were ordered were interpreted as part of the medical decision making: Medical Decision Making/Plan: Differential includes acute coronary syndrome, pulmonary embolism, pneumonia, aortic dissection, pericardial tamponade, musculoskeletal chest pain, among others. Patient is nontoxic and well-appearing and afebrile. No hypoxia or subcostal retractions. He is noted to be significantly tachycardic on initial arrival. Likely secondary to methamphetamine abuse. He is otherwise well-hydrated appearing. Non-lethargic. No focal neurologic deficits. The anterior chest wall discomfort that he is describing is easily reproducible upon palpation. There is no visualized mass on the left anterior chest. EKG shows sinus tachycardia without any obvious signs of ischemia. No significant right heart strain. CXR shows NAD. Troponin is negative x1 UDS is positive for methamphetamines. CT angio chest shows no PE or Dissection. Incidentally found asymmetric soft tissue swelling within the left upper chest wall regional to the left first sternocostal joint. Patient instructed to f/u with his PMD for MRI of this within 1 week to eval for soft tissue mass/malignancy vs infection. Infection is less likely given absence of fever or white count. Due to history of HIV and hep C, will empirically place patient on Bactrim till he is able to follow-up with his PMD. ED intervention included ativan, after which tachycardia improved. Low suspicion for septic process. BCx pending at the time of DC. Pt made aware if they grow positive that he will get a call back to return to the ER. Acute coronary syndrome is unlikely and the patient is low risk, pain is atypical, nonexertional, and troponin is negative with over 6 hrs of symptoms. The pain is not classic for pericarditis or myocarditis, and the patient has no significant risk factors for a pericardial effusion and has stable vitals signs, unlikely to have tamponade. Patient observed for several hours in the ED, ECG with no emergent findings, patient discharged with no dangerous vital signs, patient instructed to follow up with PMD in the next 1-2 days Allergies: Coded Allergies: PENICILLINS (Unverified Allergy, Unknown, Rash, 04/16/18) Uncoded Allergies: PENICILLIN (Allergy, Intermediate, Rash, 06/16/17) COVID-19 Screening Contact w/high risk pt: No Recent Travel to affected area: No Experienced COVID-19 symptoms?: No COVID-19 Testing performed INTERNAL COMBUSTION ENGINE INSPECTOR: No COVID-19 Screening: Negative COVID-19 COVID-19 Testing Source: july 01 2020 Nursing Documentation-PMH Past Medical History: No History, Except For Physical Exam Vital Signs Date Time Temp Pulse Resp B/P (MAP) Pulse Ox O2 Delivery O2 Flow Rate FiO2 07/06/20 23:02 97.2 245 18 118/73 (88) 97 Room Air Sp02 EP Interpretation: reviewed, normal Medical Decision Making Diagnostic Impression: Primary Impression: Chest wall pain Additional Impressions: Methamphetamine abuse HIV (human immunodeficiency virus infection) Hepatitis C Cough Tobacco abuse Soft tissue swelling of chest wall EKG Diagnostic Results PA Scribe Text 12-lead EKG (interpreted by me) Time: 2310 Indication: Rhythm analysis Tracing visualized and Interpreted by me. Rhythm: Sinus tachycardia Rate: 119 bpm QTc: 444 Morphology: No_significant_ST_elevations_or_depressions, No STEMI Impression: Sinus tachycardia. Normal axis. Normal intervals Rhythm Strip Diag. Results Rhythm Strip Time: 01:36 EP Interpretation: yes Rate: 97 Rhythm: NSR, no PVC's, no ectopy Chest X-Ray Diagnostic Results Chest X-Ray Diagnostic Results : PA Scribe Text Chest X-Ray: Views: 1 view(s) Indication: Chest pain Findings: Normal heart size. Mediastinum normal. No infiltrate. Impression: No acute disease The X-ray(s) were independently viewed and interpreted contemporaneously Electronically signed by Amirah diaz DO CT/MRI/US Diagnostic Results CT/MRI/US Diagnostic Results : Impression Procedure: CTA Chest w Contrast FINDINGS: Pulmonary arteries: Unremarkable. No pulmonary embolism. Aorta: No acute findings. No thoracic aortic aneurysm or dissection. Lungs: Mild atelectasis seen in both lung bases, left more than right. No airspace consolidation or pulmonary edema.. Pleural space: Unremarkable. No significant effusion. No pneumothorax. Heart: Unremarkable. No cardiomegaly. No significant pericardial effusion. No evidence of RV dysfunction. Bones/joints: No acute fracture. No dislocation. Soft tissues: There is mild asymmetric soft tissue swelling and subcutaneous fat stranding along the left upper chest wall, regional to the left first sternocostal joint. No loculated fluid collection. No soft tissue gas. Lymph nodes: Unremarkable. No enlarged lymph nodes. IMPRESSION: No evidence of pulmonary embolism or thoracic aortic dissection. Asymmetric soft tissue swelling within the left upper chest wall regional to the left first sternocostal joint. Please correlate for history of trauma at this site. Absent trauma history findings may be associated with infection or underlying soft tissue mass. Further evaluation with MRI may be considered. Dictated By: Adolfo Sandy MD Reevaluation Time: Last Vital Signs Date Time Temp Pulse Resp B/P (MAP) Pulse Ox O2 Delivery O2 Flow Rate FiO2 07/06/20 23:45 108 18 Room Air 07/06/20 23:45 97.2 118/73 97 Status: improved Disposition: HOME, SELF-CARE Admit Decision Time: : Condition: Stable Scripts Ondansetron Odt* (ZOFRAN ODT*) 4 Mg Tab.rapdis 4 MG BC EVERY 8 HOURS PRN for Nausea & Vomiting, #10 TAB 0 Refills Prov: Amirah Mancilla.OMahnaz 07/07/20 Albuterol Sulfate (PROVENTIL HFA) 6.7 Gm Hfa.aer.ad 6.7 GM IH Q4HR for wheezing, #1 GM Prov: Amirah Mancilla.O. 07/07/20 Trimethoprim/Sulfamethoxazole 160/800* (BACTRIM DS TABLET*) 1 Each Tablet 1 TAB ORAL Q12H, #14 TAB 0 Refills Prov: Amirah Mancilla D.O. 07/07/20 Referrals: NON PHYSICIAN (PCP) Patient Instructions: Cough, Adult, Dnaf-[id number], Nonspecific Chest Pain Additional Instructions: Instructions for patient/career center advisor: Follow up with your physician in 1-2 days. Get MRI of your L chest mass to rule out malignancy/cancer or infection within 1 week. Take all of your HIV medications as prescribed. Follow-up with your infectious disease doctor. Stop taking methamphetamines. It is bad for your health. Stop smoking Follow-up with your doctor sooner if your condition requires a more timely clinical reevaluation. Return to the emergency department immediately if you feel that your condition is worsening or if you have any new or concerning symptoms. Review your discharge instructions and take any prescriptions given as instructed. [facility] PROVIDES FREE OR LOW-COST HEALTH SERVICES TO PEOPLE WHO CAN SHOW PROOF THAT THEY LIVE IN [facility]. TO FIND MORE CLINICS PARTNERED WITH THE [facility] TO PROVIDE SERVICE, PLEASE CALL . Amirah Mancilla D.O. Jul 07, 2020 00:47
--- NOTE | 2020-07-07 01:15 | NUR ---
ED Nurse Note: Patient back from CT. biodiesel processing technician at bedside
[2020-07-07 01:37] VITALS: BP 116/74
--- NOTE | 2020-07-07 02:23 | Diagnostic Imaging Report ---
EXAM: CT Angiography Chest With Intravenous Contrast CLINICAL HISTORY: Chest pain TECHNIQUE: Axial computed tomographic angiography images of the chest with intravenous contrast. CTDI is 76.13 mGy and DLP is 254.2 mGy-cm. One or more of the following dose reduction techniques were used: automated exposure control, adjustment of the mA and/or kV according to patient size, use of iterative reconstruction technique. MIP reconstructed images were created and reviewed. COMPARISON: No relevant prior studies available. FINDINGS: Pulmonary arteries: Unremarkable. No pulmonary embolism. Aorta: No acute findings. No thoracic aortic aneurysm or dissection. Lungs: Mild atelectasis seen in both lung bases, left more than right. No airspace consolidation or pulmonary edema.. Pleural space: Unremarkable. No significant effusion. No pneumothorax. Heart: Unremarkable. No cardiomegaly. No significant pericardial effusion. No evidence of RV dysfunction. Bones/joints: No acute fracture. No dislocation. Soft tissues: There is mild asymmetric soft tissue swelling and subcutaneous fat stranding along the left upper chest wall, regional to the left first sternocostal joint. No loculated fluid collection. No soft tissue gas. Lymph nodes: Unremarkable. No enlarged lymph nodes. IMPRESSION: No evidence of pulmonary embolism or thoracic aortic dissection. Asymmetric soft tissue swelling within the left upper chest wall regional to the left first sternocostal joint. Please correlate for history of trauma at this site. Absent trauma history findings may be associated with infection or underlying soft tissue mass. Further evaluation with MRI may be considered.
[2020-07-07 02:45] VITALS: BP 124/78
--- NOTE | 2020-07-07 02:45 | NUR ---
ER DISCHARGE NOTE: Patient is cleared to be discharged per ERMD, pt is aox4, on room air, with stable vital signs. pt was given dc and prescription instructions, pt was able to verbalize understanding, pt id band and iv site removed without complications. pt is able to ambulate with steady gait. pt took all belongings.
--- NOTE | 2020-07-07 04:34 | Diagnostic Imaging Report ---
EXAM: XR Chest, 1 View CLINICAL HISTORY: PAIN TECHNIQUE: Frontal view of the chest. COMPARISON: No relevant prior studies available. FINDINGS: Lungs: Left basilar atelectasis. Lungs are otherwise well-inflated. No pulmonary edema. Pleural space: Unremarkable. No pneumothorax. Heart: Unremarkable. No cardiomegaly. Mediastinum: Unremarkable. No mediastinal widening or shift. Bones/joints: Unremarkable. IMPRESSION: Left basilar atelectasis. Otherwise no evidence of active cardiopulmonary abnormality.
--- NOTE | 2020-07-07 07:00 | NUR ---
ED Nurse Note: Spoke to KONG at PHARMACY. Patient not on system anymore to waste ativan. Wasted remaining ativan IV with charge nurse Marcella Rock.
== END 2020-07-07 02:47 | disposition home or self-care (01) ==
LOC: EMR 23:11
DX: R07.9 Chest pain, unspecified (principal); F15.10 Other stimulant abuse, uncomplicated; B20 Human immunodeficiency virus [HIV] disease; B19.20 Unspecified viral hepatitis C without hepatic coma; R05 Cough; Z72.0 Tobacco use; R22.2 Localized swelling, mass and lump, trunk; Z88.0 Allergy status to penicillin; R00.0 Tachycardia, unspecified
CPT/HCPCS: 36415; 71045; 71275; 80053; 80307; 81003; 83605; 83880; 84443; 84484; 85025; 85610; 85730; 87040; 93005; 96365; 96366; 96375; J2405; J7040; Q9967; U0002; Z7502; 99285; S0077

== ENCOUNTER 2020-07-13 12:12 | Emergency (ER) | payer MEDICAID ==
[~2020-07-13] VITALS: Ht 172.7 cm; Wt 72.6 kg
[~2020-07-13 12:12] MED LIST changes: +ONDANSETRON ODT4 MG BC; +PROVENTIL HFA6.7 G1 IH
[2020-07-13 12:40] VITALS: BP 129/75
--- NOTE | 2020-07-13 12:40 | NUR ---
ED Nurse Note: Pt walked into ED from home C/O pain on left upper chest where a biopsy was taken on 07/12/20.Pt also reports pain in wound on right lower extremity. Pt states he only wants pain medications. pt states he signed AMA on 07/12/20 TANNA lolis because he doesnt want to be in the hospital any more. Wound is inflammed, redenned, with yellow pus pt states he got wound on the hospital. Pt is tachycardic 112, other vitals stable as documented.
--- NOTE | 2020-07-13 13:20 | NUR ---
ED Nurse Note: special technical operations officer at bedside performing CXR
[2020-07-13] MEDS ORDERED: Morphine Sulfate 2mg/ml Inj(IV/IM USE ONLY) IVP ONE (13:30)
[2020-07-13 13:35] LABS: BASOPHILS % (AUTO) 1.5 % (0.0-2.0); EOSINOPHILS % (AUTO) 1.6 % (0.0-3.0); HEMATOCRIT 31.7 % (42.0-52.0); HEMOGLOBIN 11.3 G/DL (14.2-18.0); LYMPHOCYTES % (AUTO) 36.5 % (20.0-45.0); MEAN CORPUSCULAR VOLUME 92 FL (80-99); MONOCYTES % (AUTO) 12.6 % (1.0-10.0); NEUTROPHILS % (AUTO) 47.8 % (45.0-75.0); PLATELET COUNT 533 K/UL (150-450); RED BLOOD COUNT 3.44 M/UL (4.70-6.10); RED CELL DISTRIBUTION WIDTH 12.4 % (11.6-14.8); WHITE BLOOD COUNT 10.4 K/UL (4.8-10.8)
--- NOTE | 2020-07-13 13:40 | Emergency Room Report ---
History of Present Illness General Chief Complaint: General Complaint Source: Patient Present Illness HPI 50-year-old male with history of HIV, hepatitis C, who was recently seen here [facility] for chest wall pain status post biopsy here complaining of pain at the biopsy site that were done at [facility] 1 week ago. Patient signed AGAINST MEDICAL ADVICE however did not want to stay in hospital and monitor. Patient has history of IV drug use. Has recent methamphetamine abuse in the diagnosis. Denies any internal chest pain or shortness of breath. Also has a draining abscess right calf as reports that he urgently went to call the hospital for diet and was under antibiotics. Patient reports that after he signed AMA he went home and drink a lot of alcohol. Denies any drug use. Denies abdominal pain, nausea vomiting diarrhea. Denies cough and congestion. Reports that his CD4 counts and viral loads are within normal limits the patient is up-to-date with infectious disease specialist visits. Allergies: Coded Allergies: PENICILLINS (Unverified Allergy, Unknown, Rash, 04/16/18) Uncoded Allergies: PENICILLIN (Allergy, Intermediate, Rash, 06/16/17) COVID-19 Screening Contact w/high risk pt: No Recent Travel to affected area: No Experienced COVID-19 symptoms?: No COVID-19 Testing performed SKE[employer] DRIER: No Patient History Past Medical History: see triage record Past Surgical History: none Pertinent Family History: none Immunizations: UTD Reviewed Nursing Documentation: PMH: Agreed; PSxH: Agreed Nursing Documentation-PMH Past Medical History: No History, Except For Review of Systems All Other Systems: negative except mentioned in HPI Physical Exam Vital Signs Date Time Temp Pulse Resp B/P (MAP) Pulse Ox O2 Delivery O2 Flow Rate FiO2 07/13/20 12:34 98.2 128 18 118/70 (86) 98 Room Air Sp02 EP Interpretation: abnormal - tachycardic General Appearance: alert, non-toxic, mild distress Head: normocephalic, atraumatic Eyes: bilateral eye normal inspection, bilateral eye PERRL ENT: hearing grossly normal, normal pharynx, no angioedema, normal voice Neck: full range of motion, supple, no meningismus Respiratory: chest non-tender, lungs clear, normal breath sounds, no rhonchi, no respiratory distress, no retraction, no wheezing, speaking full sentences Cardiovascular #1: regular rate, rhythm, no edema, no murmur Cardiovascular #2: 2+ carotid (R), 2+ carotid (L), 2+ radial (R), 2+ radial (L), 2+ dorsalis pedis (R), 2+ dorsalis pedis (L) Gastrointestinal: normal bowel sounds, non tender, soft, non-distended, no guarding, no rebound Rectal: deferred Genitourinary: no CVA tenderness Musculoskeletal: back normal, no calf tenderness Neurologic: alert, motor strength/tone normal, oriented x3, sensory intact, responsive, speech normal Psychiatric: judgement/insight normal, memory normal, mood/affect normal, no suicidal/homicidal ideation Skin: other - Draining abscess right calf Lymphatic: no adenopathy Procedures Incision and Drainage Incision and Drainage : Consent: Verbal Site: right calf Blade Size: 11 I & D Procedure: betadine prep Wound Location: lower extremity - right calf Wound's Depth, Shape: superficial Wound Length (cm): 1 Anesthesia: 1% Lidocaine Volume Anesthetic (ccs): 10 Splint Applied?: No Sling Applied?: No Patient Tolerated: Well Complications: None Medical Decision Making PA Attestation All diagnoses and treatment plans were reviewed and discussed with my supervising physician Dr. Perales Diagnostic Impression: Primary Impression: Abscess of leg Additional Impressions: Chest wall pain Methamphetamine abuse ER Course 50-year-old male with history of HIV, hepatitis C, who was recently seen here [facility] for chest wall pain status post biopsy here complaining of pain at the biopsy site that were done at [facility] 1 week ago. Patient signed AGAINST MEDICAL ADVICE however did not want to stay in hospital and monitor. Patient has history of IV drug use. Has recent methamphetamine abuse in the diagnosis. Denies any internal chest pain or shortness of breath. Also has a draining abscess noted in right calf as reports that he urgently went to call the hospital for diet and was under antibiotics. Patient reports that after he signed AMA he went home and drink a lot of alcohol. Denies any drug use. Denies abdominal pain, nausea vomiting diarrhea. Denies cough and congestion. Reports that his CD4 counts and viral loads are within normal limits the patient is up-to-date with infectious disease specialist visits. Ddx considered but are not limited to : Cellulitis, infection at biopsy site, superficial infection, abscess Vital signs: are WNL, pt. is afebrile H&PE are most consistent with:abscess right leg, chest wall pain, methamphetamine abuse ORDERS: CBC, CMP, UA, tox screen, EtOH, chest x-ray, EKG, troponin, lactic acid, Bactrim DS, clindamycin, ibuprofen ED INTERVENTIONS: NS bolus, morphine, Zofran, clindamycin, I&D DISCHARGE: At this time pt. is stable for d/c to home. Will provide printed patient care instructions, and any necessary prescriptions. Care plan and follow up instructions have been discussed with the patient prior to discharge. Patient also had a CTA done July 06 here which was within normal limits no emboli were detected. Patient is very hypervigilant upon palpation of the chest and appears to be going through withdrawal symptoms from alcohol. Patient to take medication as directed, follow primary care provider, wound care needed in 24 to 48 hours, if worsening symptoms return to the emergency room EKG Diagnostic Results Rate: tachycardiac Rhythm: other - tachycardic ST Segments: no acute changes Other Impression No acute ST changes Chest X-Ray Diagnostic Results Chest X-Ray Diagnostic Results : Chest X-Ray Ordered: Yes # of Views/Limited/Complete: 1 View Indication: Chest Pain EP Interpretation: Yes PA Xray: Interpretation reviewed, by supervising MD, and agrees with findings. Interpretation: no consolidation, no effusion, no pneumothorax Impression: No acute disease Electronically Signed by: Sonam Mcgarry PA-C Last Vital Signs Date Time Temp Pulse Resp B/P (MAP) Pulse Ox O2 Delivery O2 Flow Rate FiO2 07/13/20 12:40 114 18 Room Air 07/13/20 12:40 98.1 129/75 98 Disposition: HOME, SELF-CARE Condition: Stable Scripts Ibuprofen (Ibu) 800 Mg Tablet 800 MG PO BID, #20 TAB Prov: Sonam Adams 07/13/20 Trimethoprim/Sulfamethoxazole 160/800* (BACTRIM DS TABLET*) 1 Each Tablet 1 TAB ORAL TWICE A DAY for 7 Days, #14 TAB Prov: Sonam Adams 07/13/20 Clindamycin Hcl* (CLINDAMYCIN HCL*) 150 Mg Capsule 300 MG ORAL FOUR TIMES A DAY for 7 Days, #28 CAP Prov: Sonam Adams 07/13/20 Referrals: NON PHYSICIAN (PCP) Patient Instructions: Abscess, [id number], Chest Wall Pain, [id number], Stimulant Use Disorder-Amphetamines Additional Instructions: Take medication as directed, follow-up with your primary care provider, you need a wound check in 24 to 48 hours, if worsening symptoms return to emergency room. Sonam Adams Jul 13, 2020 13:40
[2020-07-13 13:49] LABS: ANION GAP 11 mmol/L (5-15); BLOOD UREA NITROGEN 7 mg/dL (7-18); CALCIUM 9.2 MG/DL (8.5-10.1); CARBON DIOXIDE 23 MMOL/L (21-32); CHLORIDE 104 MMOL/L (98-107); CREATININE 0.7 MG/DL (0.55-1.30); POTASSIUM 3.6 MMOL/L (3.5-5.1); SODIUM 138 MMOL/L (136-145)
[2020-07-13 13:55] LABS: ALANINE AMINOTRANSFERASE 65 U/L (12-78); ALBUMIN 2.8 G/DL (3.4-5.0); ALBUMIN/GLOBULIN RATIO 0.5 (1.0-2.7); ALKALINE PHOSPHATASE 103 U/L (46-116); ASPARTATE AMINO TRANSFERASE 59 U/L (15-37); BILIRUBIN,TOTAL 0.3 MG/DL (0.2-1.0)
[2020-07-13 14:03] LABS: APPEARANCE,URINE CLEAR; BILIRUBIN, URINE NEGATIVE (NEGATIVE); COLOR,URINE YELLOW; GLUCOSE, URINE (UA) NEGATIVE (NEGATIVE); KETONES,URINE 1+ (NEGATIVE); LEUKOCYTE ESTERASE ,URINE 1+ (NEGATIVE); NITRITE,URINE NEGATIVE (NEGATIVE); PH,URINE 6.5 (4.5-8.0); PROTEIN,URINE 2+ (NEGATIVE); UROBILINOGEN,URINE 1 MG/DL (0.0-1.0)
--- NOTE | 2020-07-13 14:18 | Diagnostic Imaging Report ---
EXAM: XR Chest, 1 View CLINICAL HISTORY: PAIN TECHNIQUE: Frontal view of the chest. COMPARISON: Chest radiograph on 07/07/2020 FINDINGS: Hardware: None. Lungs/pleura: Mild left basilar atelectasis. No focal consolidation. No pleural effusion or pneumothorax. Heart/mediastinum: Normal. No cardiomegaly. Soft tissues: Unremarkable. Bones: No acute fracture. Upper abdomen: Normal. IMPRESSION: Mild left basilar atelectasis. No focal consolidation.
[2020-07-13] MEDS ORDERED: IBU800 MG PO (15:12)
[2020-07-13] MEDS ORDERED: CLINDAMYCIN HC150 MG ORAL (15:12)
[2020-07-13] MEDS ORDERED: BACTRIM DS TAB1 EAC1 ORAL (15:12)
[2020-07-13 15:25] VITALS: BP 133/71
--- NOTE | 2020-07-15 20:05 | Cardiology Report ---
APPROVED REPORT EKG Measurement Heart [id number] ID [id number] <Conclusion> Sinus rhythm with 1st degree AV block Left anterior fascicular block Left ventricular hypertrophy with repolarization abnormality Abnormal ECG
== END 2020-07-13 15:25 | disposition home or self-care (01) ==
LOC: EMR 12:46
DX: R07.9 Chest pain, unspecified (principal); L02.415 Cutaneous abscess of right lower limb; F15.10 Other stimulant abuse, uncomplicated; B20 Human immunodeficiency virus [HIV] disease; Z86.19 Personal history of other infectious and parasitic diseases; Z88.0 Allergy status to penicillin; R00.0 Tachycardia, unspecified
CPT/HCPCS: 10060; 36415; 71045; 80053; 80307; 81003; 83605; 84484; 85025; 93005; 96361; 96365; 96375; G0480; J2270; J2405; J7030; Z7502; 99284; S0077

== ENCOUNTER 2020-08-01 21:07 | Emergency (ER) | payer MEDICAID ==
[~2020-08-01] VITALS: Ht 172.7 cm; Wt 77.1 kg
[~2020-08-01 21:07] MED LIST changes: +CLINDAMYCIN HC150 MG ORAL; +IBU800 MG PO
--- NOTE | 2020-08-01 21:17 | NUR ---
unable to triage at this time, patient no in waiting room
--- NOTE | 2020-08-01 21:45 | NUR ---
ED Nurse Note: Pt ambulated to ED from home c/o mass in his upper L chest. Pt was seen at another hospital for the same thing yesterday but left AMA after not being able to receive surgery. Pt is A&OX4, VSS, pt is resistent to care, ERMD at bedside
[2020-08-01 22:00] VITALS: BP 118/68
--- NOTE | 2020-08-01 22:00 | NUR ---
ER DISCHARGE NOTE: Patient is cleared to be discharged per ERMD, pt is aox4, on room air, with stable vital signs. pt was given dcinstructions, pt was able to verbalize understanding, pt id band removed. pt is able to ambulate with steady gait. pt took all belongings.
--- NOTE | 2020-08-01 22:07 | Emergency Room Report ---
History of Present Illness General Chief Complaint: Skin Rash/Abscess Source: Patient Present Illness HPI There is a 50-year-old male with a history of drug abuse. He presents with chief complaint of a mass to the left chest area. He said has been there for 2 weeks but he was here about a month ago for the same thing. CT scan then showed a left chest mass by the left clavicle area. He said he was at [facility] yesterday. He signed out AMA. He is here now for the same thing. Tender to palpation. Pain is 8 out of 10. No injury. No fever chills but no drainage. Denies any other complaint. 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 COVID-19 Screening: Negative COVID-19 COVID-19 Testing Source: [facility] Patient History Past Medical History: see triage record, old chart reviewed Past Surgical History: none Pertinent Family History: none Social History: Reports: smoking, drug use Immunizations: other Reviewed Nursing Documentation: PMH: Agreed; PSxH: Agreed Nursing Documentation-PMH Past Medical History: No History, Except For Review of Systems Eye: Denies: eye pain, blurred vision ENT: Denies: ear pain, nose congestion, throat swelling Respiratory: Denies: cough, shortness of breath Cardiovascular: Denies: chest pain, palpitations Gastrointestinal: Denies: abdominal pain, diarrhea, nausea, vomiting Musculoskeletal: Denies: back pain, joint pain Skin: Denies: rash Neurological: Denies: headache, numbness Endocrine: Denies: increased thirst, increased urine Hematologic/Lymphatic: Denies: easy bruising All Other Systems: negative except mentioned in HPI Physical Exam Vital Signs Date Time Temp Pulse Resp B/P (MAP) Pulse Ox O2 Delivery O2 Flow Rate FiO2 08/01/20 21:17 99.9 112 18 118/68 (85) 97 Room Air Vitals unremarkable Sp02 EP Interpretation: reviewed, normal General Appearance: well appearing, no apparent distress, alert Head: normocephalic, atraumatic Eyes: bilateral eye PERRL, bilateral eye EOMI ENT: hearing grossly normal, normal pharynx Neck: full range of motion, supple, no meningismus Respiratory: lungs clear, normal breath sounds, other - Chest wall: He has a tender 4 to 5 cm mass to the left upper chest just beneath left clavicle. No fluctuant. Cardiovascular #1: regular rate, rhythm, no murmur Gastrointestinal: normal bowel sounds, non tender, no mass, no organomegaly, no bruit, non-distended Musculoskeletal: back normal, normal range of motion, gait/station normal Psychiatric: mood/affect normal Medical Decision Making Homeless Attestation I, The treating physician, Dr Jonathan Martin, has assessed and agrees that patient is medically stable for discharge to an outpatient disposition. Diagnostic Impression: Primary Impression: Soft tissue swelling of chest wall Additional Impression: Methamphetamine abuse ER Course Soft tissue swelling/mass to the left chest wall. This been ongoing for a month. Recommend outpatient follow-up with surgeon. There is no need for emergent I&D or surgery here. Will discharge home. Patient left without his paperwork. Last Vital Signs Date Time Temp Pulse Resp B/P (MAP) Pulse Ox O2 Delivery O2 Flow Rate FiO2 08/01/20 21:17 99.9 112 18 118/68 (85) 97 Room Air Status: unchanged Disposition: HOME, SELF-CARE Condition: Stable Additional Instructions: Follow-up with In 7 days. You will need a referral to see a surgeon for biopsy or excision. Return if worse. Jonathan Martin MD Aug 01, 2020 22:07
== END 2020-08-01 22:15 | disposition home or self-care (01) ==
LOC: EMR 22:15
DX: R22.2 Localized swelling, mass and lump, trunk (principal); F15.10 Other stimulant abuse, uncomplicated; F17.200 Nicotine dependence, unspecified, uncomplicated; Z88.0 Allergy status to penicillin
CPT/HCPCS: 99281